=== PATIENT | female | born 1950 | race Caucasian/White ===

== ENCOUNTER → 2017-10-02 | Outpatient (CLI) | payer MEDICARE, OTHER ==
[~2017-10-02] MED LIST: AMLO5 PO; ATEN50 PO; Ativan1 MG SL; CIPR500 PO; CLON.1; Carbidopa-Levo1 EAC1 PO; ESZO2 PO; GABA300T24; Inderal40 MG; LABE100 PO; LORA1 PO; NALT50 PO; NEBI10 PO; OMEPRAZOLE MAGN20 MG PO; PRAM.125 PO; PROP10 PO; QUET25 PO; SPIR25; Zofran Odt8 MG SL
== END | disposition home or self-care (01) ==
LOC: PLD 13:17 → LAB SHORT 13:17
DX: L30.8 Other specified dermatitis (principal)
CPT/HCPCS: 88305; 88312

== ENCOUNTER → 2017-10-03 | Outpatient (CLI) | payer MEDICARE, OTHER | END | disposition home or self-care (01) | LOC: PLD 07:21 → LAB SHORT 07:21 | DX: D17.0 Benign lipomatous neoplasm of skin and subcutaneous tissue of head, face and neck (principal) | CPT/HCPCS: 88305 ==

== ENCOUNTER 2018-01-01 08:18 | Day surgery (SDC) | payer MEDICARE, OTHER ==
[~2018-01-01] VITALS: Ht 172.7 cm; Wt 83.0 kg
== END 2018-01-01 11:43 | disposition home or self-care (01) ==
LOC: ORSCSDS 08:18
PROVIDERS: Internal Medicine Gastroenterology
PROC: 0DBK8ZX Excision of Ascending Colon, Via Natural or Artificial Opening Endoscopic, Diagnostic (ICD-10-PCS; principal; 2018-01-01 09:30)
PROC: 0DBL8ZX Excision of Transverse Colon, Via Natural or Artificial Opening Endoscopic, Diagnostic (ICD-10-PCS; principal; 2018-01-01 09:30)
DX: Z12.11 Encounter for screening for malignant neoplasm of colon (principal); Z83.71 Family history of colonic polyps; D12.2 Benign neoplasm of ascending colon; D12.3 Benign neoplasm of transverse colon; K57.30 Diverticulosis of large intestine without perforation or abscess without bleeding; K64.8 Other hemorrhoids; I10 Essential (primary) hypertension; G20 Parkinson's disease; Z79.899 Other long term (current) drug therapy
CPT/HCPCS: 88305; J2405; J7120

== ENCOUNTER → 2018-06-22 | Outpatient (CLI) | payer MEDICARE, OTHER ==
[2018-06-26 14:10] LABS: DOPAMINE, URINE 29 ug/L (Undefined)
[2018-06-26 18:07] LABS: METANEPHRINE, UR 48 ug/L (Undefined)
[2018-06-28 08:18] LABS: 5-HIAA, URINE 1.9 mg/L (Undefined)
== END | disposition home or self-care (01) ==
LOC: LAB SHORT 13:16 → LAB 13:16
PROVIDERS: Internal Medicine
DX: I10 Essential (primary) hypertension (principal)
CPT/HCPCS: 81050; 82088; 82384; 82530; 82570; 83497; 83835; 84585

== ENCOUNTER → 2018-06-24 | Outpatient (CLI) | payer MEDICARE, OTHER | END | disposition home or self-care (01) | LOC: LAB SHORT 14:08 → PLD 14:08 | DX: L30.9 Dermatitis, unspecified (principal) | CPT/HCPCS: 88305 ==

== ENCOUNTER 2019-04-07 06:25 | Emergency (ER) | payer MEDICARE, OTHER ==
[~2019-04-07] VITALS: Ht 165.1 cm; Wt 81.7 kg
[2019-04-07] MEDS ORDERED: CAPTOPRIL (07:04)
[2019-04-07 07:05] LABS: BASOPHILS ABSOLUTE AUTO 0.04 K/mm3 (0.00-0.23); BASOPHILS PERCENT AUTO 0 % (0-2); EOSINOPHILS ABSOLUTE AUTO 0.02 K/mm3 (0.00-0.68); EOSINOPHILS PERCENT AUTO 0 % (0-6); Hematocrit 44.6 % (33.0-51.0); Hemoglobin 14.9 g/dL (11.5-16.0); IMMATURE GRAN ABSOLUTE AUTO 0.05 K/mm3 (0.00-0.10); IMMATURE GRAN PERCENT AUTO 0 % (0-1); LYMPHOCYTES ABSOLUTE AUTO 1.63 K/mm3 (0.84-5.20); LYMPHOCYTES PERCENT AUTO 12 % (21-46); MONOCYTES ABSOLUTE AUTO 0.92 K/mm3 (0.16-1.47); MONOCYTES PERCENT AUTO 7 % (4-13); Mean Corpuscular HGB 30.9 pg (26.0-34.0); Mean Corpuscular HGB Conc 33.4 g/dL (31.5-36.5); Mean Corpuscular Volume 93 fL (80-100); NEUTROPHILS PERCENT AUTO 81 % (41-73); Platelet Count 476 K/mm3 (150-400); Red Blood Cell Count 4.82 M/mm3 (3.80-5.20); White Blood Cell Count 13.76 K/mm3 (4.00-11.30)
[2019-04-07 07:27] LABS: Albumin, Blood 4.1 g/dL (3.4-5.0); Bun/Creatinine Ratio 19.6 (12.0-20.0); Calcium, Blood 9.7 mg/dL (8.5-10.1); Creatinine, Blood 1.12 mg/dL (0.40-1.00); Globulin, Blood 4.2 g/dL (2.2-4.0); Potassium, Blood 3.6 mmol/L (3.5-5.5); Total Protein, Blood 8.3 g/dL (6.4-8.2)
[2019-04-07 07:49] LABS: Source, Urine Clean Catch
[2019-04-07 07:58] LABS: Bilirubin, Urine Neg (Neg); Blood, Urine 4+ (Neg); Glucose Qualitative, Urine Neg (Neg); Ketones, Urine 3+ (Neg); Leukocyte Esterase, Urine 3+ (Neg); Nitrite, Urine Neg (Neg); Protein, Urine 2+ (Neg); Urobilinogen, Urine NORM (Normal)
[2019-04-07 08:15] LABS: Appearance, Urine Hazy (Clear); Color, Urine Yellow (P-Yellow)
[2019-04-07 08:17] LABS: White Blood Cells, Urine 25-50 /hpf (0-5)
[2019-04-07 08:18] LABS: Bacteria Few /hpf; Squamous Epithelial Cells Few /hpf (Few); Transitional Epithelial Cells Few /hpf (0-Rare)
[2019-04-07] MEDS ORDERED: CEPH500 PO (08:49)
[2019-04-07] MEDS ORDERED: PROM25 PO (13:02)
[2019-04-07] MEDS ORDERED: Pyridium200 MG PO (13:16)
== END 2019-04-07 13:33 | disposition home or self-care (01) ==
LOC: ER 06:25
PROVIDERS: Emergency Medicine
DX: N39.0 Urinary tract infection, site not specified (principal); Z88.8 Allergy status to other drugs, medicaments and biological substances; Z88.5 Allergy status to narcotic agent; Z79.899 Other long term (current) drug therapy; I10 Essential (primary) hypertension
CPT/HCPCS: 36415; 70450; 74176; 80053; 81001; 83690; 85025; 87086; 96361; 96374; 96375; 99284-25; J1170; J1885; J2060; J2405; J2550; J3010; J7030

== ENCOUNTER → 2019-04-16 | Outpatient (CLI) | payer MEDICARE, OTHER ==
[~2019-04-16] MED LIST changes: +CAPTOPRIL; +CEPH500 PO; +PROM25 PO; +Pyridium200 MG PO
[2019-04-16 11:56] LABS: Source, Urine Clean Catch
[2019-04-16 12:42] LABS: Bilirubin, Urine Neg (Neg); Blood, Urine 2+ (Neg); Glucose Qualitative, Urine Neg (Neg); Ketones, Urine 1+ (Neg); Leukocyte Esterase, Urine Neg (Neg); Nitrite, Urine Neg (Neg); Protein, Urine Neg (Neg); Urobilinogen, Urine NORM (Normal); pH, Urine 6.5 (5.0-8.0)
[2019-04-16 12:53] LABS: Appearance, Urine Clear (Clear); Color, Urine Yellow (P-Yellow)
[2019-04-16 12:56] LABS: Bacteria Not Seen /hpf; Squamous Epithelial Cells Few /hpf (Few); White Blood Cells, Urine Not Seen /hpf (0-5)
== END | disposition home or self-care (01) ==
LOC: LAB 11:54 → LAB SHORT 11:54
PROVIDERS: Internal Medicine
DX: N39.0 Urinary tract infection, site not specified (principal)
CPT/HCPCS: 81001

== ENCOUNTER 2019-07-09 11:26 | Day surgery (SDC) | payer MEDICARE, OTHER ==
[~2019-07-09] VITALS: Ht 175.3 cm; Wt 88.4 kg
== END 2019-07-09 13:07 | disposition home or self-care (01) ==
LOC: ORSCSDS 11:26
PROVIDERS: Anesthesiology
PROC: 3E0R33Z Introduction of Anti-inflammatory into Spinal Canal, Percutaneous Approach (ICD-10-PCS; principal; 2019-07-09 12:30)
DX: M51.16 Intervertebral disc disorders with radiculopathy, lumbar region (principal); R09.89 Other specified symptoms and signs involving the circulatory and respiratory systems; F41.9 Anxiety disorder, unspecified; G20 Parkinson's disease; Z79.899 Other long term (current) drug therapy
CPT/HCPCS: J1040

== ENCOUNTER 2019-08-04 13:51 | Day surgery (SDC) | payer MEDICARE, OTHER ==
[~2019-08-04] VITALS: Ht 172.7 cm; Wt 87.0 kg
== END 2019-08-04 14:47 | disposition home or self-care (01) ==
LOC: ORSCSDS 13:51
PROVIDERS: Anesthesiology
PROC: 3E0R33Z Introduction of Anti-inflammatory into Spinal Canal, Percutaneous Approach (ICD-10-PCS; principal; 2019-08-04 14:45)
DX: M51.16 Intervertebral disc disorders with radiculopathy, lumbar region (principal); G20 Parkinson's disease; F41.9 Anxiety disorder, unspecified; I10 Essential (primary) hypertension; Z79.899 Other long term (current) drug therapy
CPT/HCPCS: J1040

== ENCOUNTER → 2019-09-12 | Outpatient (CLI) | payer MEDICARE, OTHER | LOC: LAB EV 15:55 → LAB SHORT 15:55 | DX: N39.0 Urinary tract infection, site not specified (principal) | CPT/HCPCS: 87086 ==

== ENCOUNTER 2020-03-05 11:04 | Inpatient (IN) | payer MEDICARE, OTHER ==
[~2020-03-05] VITALS: Ht 172.7 cm; Wt 68.0 kg
[~2020-03-05 11:04] MED LIST changes: +Ativan1 MG PO; +CAPT50 PO; -CAPTOPRIL; +FURO20 PO; -Inderal40 MG; +Inderal40 MG PO; +Klor-Con 1010 MEQ PO; +ONDA4ODT MM; +PRAMIPEXOLE0.125 M1 PO; +Pyridium100 MG PO; +TRAZ100 PO; +Zithromax250 MG PO
[2020-03-05 14:20] LABS: BASOPHILS ABSOLUTE AUTO 0.03 K/mm3 (0.00-0.23); BASOPHILS PERCENT AUTO 0 % (0-2); EOSINOPHILS ABSOLUTE AUTO 0.01 K/mm3 (0.00-0.68); EOSINOPHILS PERCENT AUTO 0 % (0-6); Hematocrit 41.4 % (33.0-51.0); Hemoglobin 13.5 g/dL (11.5-16.0); IMMATURE GRAN ABSOLUTE AUTO 0.03 K/mm3 (0.00-0.10); IMMATURE GRAN PERCENT AUTO 0 % (0-1); LYMPHOCYTES ABSOLUTE AUTO 1.25 K/mm3 (0.84-5.20); LYMPHOCYTES PERCENT AUTO 10 % (21-46); MONOCYTES ABSOLUTE AUTO 1.27 K/mm3 (0.16-1.47); MONOCYTES PERCENT AUTO 10 % (4-13); Mean Corpuscular HGB 29.5 pg (26.0-34.0); Mean Corpuscular HGB Conc 32.6 g/dL (31.5-36.5); Mean Corpuscular Volume 91 fL (80-100); Mean Platelet Volume 9.6 fL (9.1-12.4); NEUTROPHILS ABSOLUTE AUTO 9.81 K/mm3 (1.96-9.15); NEUTROPHILS PERCENT AUTO 79 % (41-73); Platelet Count 448 K/mm3 (150-400); RDW Coefficient Variation 13.6 % (11.7-14.2); RDW Standard Deviation 45.9 fL (35.1-46.3); Red Blood Cell Count 4.57 M/mm3 (3.80-5.20)
[2020-03-05 14:41] LABS: Alanine Aminotransfer (ALT/SGP 22 U/L (12-78); Albumin, Blood 3.9 g/dL (3.4-5.0); Alk Phos 75 U/L (50-136); Anion Gap 10 mmol/L (6-16); Aspartate Aminotrans (AST/SGOT 33 U/L (12-37); Blood Urea Nitrogen 20 mg/dL (8-24); Bun/Creatinine Ratio 26.2 (12.0-20.0); CO2, Blood 19 mmol/L (21-32); Calcium, Blood 9.5 mg/dL (8.5-10.1); Chloride, Blood 106 mmol/L (98-108); Creatinine, Blood 0.76 mg/dL (0.40-1.00); Globulin, Blood 3.9 g/dL (2.2-4.0); Glomerular Filtration Rate >60 (60-); Glucose, Blood 114 mg/dL (70-99); Potassium, Blood 4.5 mmol/L (3.5-5.5); Sodium, Blood 135 mmol/L (136-145); Total Protein, Blood 7.8 g/dL (6.4-8.2); Troponin I <0.015 ng/mL (0.000-0.040)
[2020-03-05 15:22] LABS: Source, Urine Catheter
[2020-03-05 15:24] LABS: Bilirubin, Urine Neg (Neg); Blood, Urine 4+ (Neg); Glucose Qualitative, Urine Neg (Neg); Ketones, Urine 4+ (Neg); Leukocyte Esterase, Urine 2+ (Neg); Nitrite, Urine Neg (Neg); Protein, Urine 3+ (Neg); Specific Gravity, Urine 1.015 (1.003-1.022); Urobilinogen, Urine 1+ (Normal)
[2020-03-05 15:32] LABS: Appearance, Urine Clear (Clear); Color, Urine Yellow (P-Yellow)
[2020-03-05 15:35] LABS: Bacteria Few /hpf; Mucus Mod (0-Heavy); Squamous Epithelial Cells Few /hpf (Few)
--- NOTE | 2020-03-05 18:54 | NUR ---
ARRIVES ABOUT 1849. MOVED FROM ER COT TO MEDICAL BED. UPPER EXTREMITY TREMORS. C/O PAIN LEGS. REPORT TO NIGHT RN
--- NOTE | 2020-03-05 19:47 | NUR ---
PT. CONFUSED VERY ANXIOUS AND ATTEMPTING TO GET OOB. PT. TRANSFERRED TO SC[facility] RM 344. REPORT GIVEN TO CALVIN BOSTON
--- NOTE | 2020-03-05 21:58 | NUR ---
INCREASED ANXIETY ON TRANSFER FROM [facility] TO 344, PT WAS VERY ANXIOUS AND TREMBLING, VERY CONFUSED, TRYING TO CLIMB OUT OF BED. PT WAS PUT ON A BEDPAN, BUT WOULD NOT USE IT. PT WAS ALSO RUNNING A SLIGHT FEVER AT 100.1. THE HOSPITALIST [place]LEON REAVES WAS NOTIFIED AT 1999, AND A DEANGELO VEST WAS ORDERED ALONG WITH A OT DOSE OF 1 MG IV ATIVAN AND 30 MG IV TORADOL FOR FEVER, PT IS CURRENTLY NOT AWARE ENOUGH TO SAFELY SWALLOW PO MEDS. TEMPERATURE ON RECHECK WAS 99.1. PT CURRENTLY RESTING COMFORTABLY. WILL CONTINUE TO MONITOR.
--- NOTE | 2020-03-06 05:53 | NUR ---
SHIFT SUMMARY PT WAS TRANSFERED TO [facility] DURING THE NIGHT AT . SHE IS 69 Y/O, ADMITTED FOR HYPERTENSIVE URGENCY. PT IS VERY CONFUSED, A&O X SELF ONLY AND DIFFICULT TO REDIRECT OR REORIENT, AND TRYING TO CLIMB OUT OF BED MULTIPLE TIMES DURING THE NIGHT. PT WAS PUT IN A DEANGELO VEST RESTRAINT (SEE PREVIOUS NOTE). SHE SLEPT FOR A COUPLE OF HOURS, BUT HAS SINCE BEEN AGITATED AND YELLING OUT FOR FAMILY MEMBERS. PT ALSO REPEATS THAT SHE NEEDS TO URINATE, EVEN RIGHT AFTER USING THE BEDSIDE COMMODE. PT WAS MEDICATED FOR ANXIETY WITH PRN IV ATIVAN THREE TIMES DURING THE NIGHT. VITAL SIGNS STABLE. TELE SHOWED NSR/ST IN THE 90-100S. NO ACUTE CHANGES IN PT CONDITION NOTED. WILL CONTINUE TO MONITOR AND TREAT PER EMAR UNTIL HAND OFF TO DAY SHIFT RN.
--- NOTE | 2020-03-06 16:05 | NUR ---
PATIENT WAS VERY ANXIOUS AND RESTLESS THIS AM AND UNABLE TO STATE WHAT EXACTLY WAS WROND BOTHERING HER. SHE REPEATEDLY WANTED TO GET UP TO THE RESTROOM, BUT THEN COULD NOT VOID. BLADDER SCAN SHOWED 201 ML'S. ABDOMEN TENDER TO PALPATION. SPOKE WITH DR FOUNTAIN AND TORADOL GIVEN X1 AND JOHN PLACED WITHOUT RELIEF OF ANXIETY AND PAIN. SEROQUEL GIVEN X1 AND PATIENT HAS SLEPT WELL SINCE THIS AM. SPOKE WITH PATIENTS WHO SAID THAT PATIENT HAD NOT SLEPT IN OVER A WEEK. LR STARTED AT 100ML/HR AND AN ORDER FOR A 24 HOURS URINE WAS PLACED. 20G IV TO R HAND WNL. PATIENT REMAINS IN RESTRAINTS DUE TO FALL RISK.
--- NOTE | 2020-03-07 05:37 | NUR ---
SHIFT SUMMARY PT IS A 69 Y/O FEMALE, ADMITTED FOR HYPERTENSIVE URGENCY AND UTI. PT IS A&O X SELF AND FAMILY, THOUGH APPEARS MILDLY MORE LUCID THAN THE PREVIOUS NIGHT. PT REPORTED OCCASIONAL MUSCLE PAIN IN HER BACK AND EXTREMITIES DURING THE NIGHT, THAT WAS ONLY MILDLY TREATED WITH IV TORADOL AND REPOSITIONING. MODERATE TREMORS NOTED WHILE AWAKE. PT OTHERWISE SLEPT WELL THROUGH THE NIGHT. NO COMPLAINTS OF NAUSEA OR SOB. JOHN IN PLACE, PATENT AND DRAINING, WITH A SMALL AMOUNT OF URINE OUTPUT. PT RECEIVING CONTINUOUS LR @ 150 ML/HR. VITAL SIGNS STABLE, THOUGH AM BLOOD PRESSURE WAS SLIGHTLY ELEVATED AT 162/75. PT REMAINS ON A DEANGELO VEST RESTRAINT FOR PT SAFETY. SPOKE TO PT'S DON AT APPROXIMATELY 2145, UPDATED HIM ON PT'S CONDITION. NO OTHER ACUTE CHANGES IN PT CONDITION NOTED. WILL CONTINUE TO MONITOR AND TREAT PER EMAR UNTIL HAND OFF TO DAY SHIFT RN.
[2020-03-07 14:10] LABS: Anion Gap 3 mmol/L (6-16); Blood Urea Nitrogen 25 mg/dL (8-24); Bun/Creatinine Ratio 32.9 (12.0-20.0); CO2, Blood 25 mmol/L (21-32); Calcium, Blood 8.3 mg/dL (8.5-10.1); Chloride, Blood 108 mmol/L (98-108); Creatinine, Blood 0.76 mg/dL (0.40-1.00); Glomerular Filtration Rate >60 (60-); Glucose, Blood 126 mg/dL (70-99); Potassium, Blood 3.9 mmol/L (3.5-5.5); Sodium, Blood 136 mmol/L (136-145)
--- NOTE | 2020-03-07 17:07 | NUR ---
PT IS A 69/F AND WAS ADMITTED FOR HYPERTENSIVE URGENCY. PT IS A/OX3. PT IS MORE AWAKE TODAY; PT WAS ABLE TO TRANSFER FROM BED TO CHAIR WITH 2 PERSON ASSIST MAX. PT HAS A LOT OF PAIN ON HER BACK TODAY AND TREATED PER EMAR AND REPOSITIONING. PT HAD AN MRI TODAY. JOHN IS IN PLACE PATENT AND DRAINING, WITH A LOW URINE AMOUNT. NOTIFIED AND 1L LR BOLUS WAS GIVEN. RESTRAINT DC'D THIS MORNING AT 0745. FALL PRECAUTIONS IN PLACE PER UNIT PROTOCOL. SKIN INTACT, ROOM AIR, BP ELEVATED TODAY, BP MEDICATION RECEIVED PER EMAR. SR AND SB ON TELE. ONGOING CARE. WILL REPORT TO ONCOMING SHIFT RN.
--- NOTE | 2020-03-08 05:59 | NUR ---
SHIFT SUMMARY PT IS A 69 Y/O FEMALE, ADMITTED FOR HYPERTENSIVE URGENCY AND UTI. PT IS A&O X 2-3, MORE ORIENTED COMPARED TO PREVIOUS NIGHTS. SHE IS A 2P MAX ASSIST UP. PT COMPLAINED OF CHRONIC BACK PAIN THROUGH THE NIGHT, AND WAS MEDICATED WITH PRN OXYCODONE, TYLENOL AND A HEATING PAD. NO COMPLAINTS OF NAUSEA OR SOB. PT RECEIVING LR @ 150 ML/HR. URINE OUTPUT IS LOW, BUT INCREASED FROM PREVIOUS NIGHT. TELE SHOWING NSR/SB IN THE 50-60S. VITAL SIGNS STABLE. NO OTHER ACUTE CHANGES IN PT CONDITION NOTED. WILL CONTINUE TO MONITOR AND TREAT PER EMAR UNTIL HAND OFF TO DAY SHIFT RN.
--- NOTE | 2020-03-08 07:00 | NUR ---
ASSUMED CARE OF PT- BEDSIDE REPORT COMPLETED WITH NIGHT RN CALVIN. PER REPORT PT IS C/O NOT BEING ABLE TO MOVE HER EXTREMITIES AND HAVING TERRIBLE PAIN IN HER COCCYX. PT IS A 3P MAX ASSIST TO PIVOT TRANSFER TO THE BED FROM THE RECLINER. PT HAS A JOHN CATH IN PLACE PATENT AND DRAINING CLEAR YELLOW URINE. LR RUNNING AT 150ML PER HOUR INTO A 20G IV IN HER RIGHT FOOT/ANKLE. NO OTHER ACCESS WAS POSSIBLE PER REPORT. PT BP HAS BEEN ELEVATED. PT CURRENTLY IN THE RECLINER. PT VERY TEARFUL.
--- NOTE | 2020-03-08 16:50 | NUR ---
SHIFT SUMMARY- PT ALERT AND ORIENTED TO SELF, PLACE, EVENT AND FAMILY. MULTIPLE CALLS FROM FAMILY PASSED ON TO DR FOUNTAIN SO HE MIGHT CALL AND UPDATE THE SON OR . PT PAIN IS BEING MANAGED, HOWEVER NAUSEA SEEMS TO BE A BIGGER PROBLEM. PLAN IS TO MEDICATED THE PT FOR PAIN AGAIN ONCE SHE FEELS LESS NAUSEA. PT HAS BEEN COLD AND CLAMMY AND C/O BEING HOT ALTERNATING T/O THE SHIFT. PT HAS TRANSFERED TO THE [facility] WITH 2PA AND ATTEMPTED TO HAVE A BM TWICE SO FAR PLAN TO CALL AND REQUEST BOWEL CARE MEDS.
--- NOTE | 2020-03-08 17:28 | NUR ---
SHIFT SUMMARY- CALLED DR FOUNTAIN. RECIEVED A NEW ORDER FOR IV REGLAN Q6P AND PO DOCUSATE AND SENNA. PT HAS NOT HAD A BM SINCE ADMIT ON THE . ALSO BPS HAVE BEEN ELEVATED IN THE 160'S RECIEVED A NEW ORDER FOR IV HYDRALIZINE FOR SBP GREATER THAN 170
--- NOTE | 2020-03-08 18:30 | NUR ---
PT HAS BEEN TAKING CAPTOPRIL TID. SPOUSE OFF WORK TOMORROW 03/09/[address] AFTER [address] IN THE AM ABOUT POSSIBLE DC OF THE JOHN CATH. PT SPOUSE STATES THAT HE IS UP WITH THE PT TO PEE T/O THE NIGHT HOURLY AND SOMETIMES HE STATED HE WILL BE UP 20 TIMES IN AN HOUR TO HELP HER TO THE BATHROOM. PT HAS A SPORTS OFFICIAL CAREGIVER WHO COMES IN DAILY TO AID WITH HER CARE.
--- NOTE | 2020-03-09 04:07 | NUR ---
SHIFT SUMMARY: PT IS ALERT AND ORIENTED WITH INTERMITTENT CONFUSION AND FORGETFULNESS. PT IS VERY ANXIOUS AND CALLING OUT FOR HELP OFTEN. I CALLED Abdullahi MAHAJAN AND GOT AN ORDER FOR A ONE TIME DOSE OF 1MG IV ATIVAN, THIS HAD MINIMAL EFFECT. PT REPORTS BLE PAIN, GIVING OXYCODONE ORDERED, AND CALLED DR. READ WHO ORDERED IV FENTANYL PRN. GIVING BOTH PAIN MEDICATIONS TOGETHER WAS THE MOST EFFECTIVE, THE PT EVENTUALLY FELL ASLEEP AFTER HER PAIN LEVEL IMPROVED. JOHN PATENT AND DRAINING. PT DENIES NAUSEA, VOMITING, AND SOB. BED IN LOW POSITION, CALL LIGHT WITHIN REACH, BED ALARM SET. WILL CONTINUE TO MONITOR.
--- NOTE | 2020-03-09 18:46 | NUR ---
SHIFT SUMMARY PATIENT'S PAIN VERY DIFFICULT TO MANAGE. PATIENT MEDICATED SEVERAL TIMES FOR PAIN. PATIENT MEDICATED X2 FOR NAUSEA. PATIENT DENIES HSORTNESS OF BREATH. PATIENT REQUIRES FREQUENT REASSURANCE. PATIENT'S APPROVED FOR ONE TIME VISIT TO DETERMINE IF HE FEELS HE CAN CARE FOR PATIENT AT HOME. PATIENT NOT DISCHARGING TODAY. PATIENT'S ABLE TO ASSSIT PATIENT TO STANDING POSITION BRIEFLY. PATIENT WORKED WITH PT/OT TODAY. PATIENT REPORTS ITCHING AND RED SPLOTCHES ARE VISIBLE ON SKIN. CALL TO DR. FOUNTAIN, NO ANSWER. DR. FOUNTAIN OVERHEAD PAGED.
--- NOTE | 2020-03-10 04:37 | NUR ---
SUPERVISOR CONCRETE BLOCK PLANT SUMMARY PT AAOX2, VERY ANXIOUS AND TEARFUL AT TIMES. GAVE PT IV BENADRYL AND HYDROCORTISONE AT START OF SHIFT BECAUSE PT HAD A SLIGHT REACTION TO IV DILAUDID THAT SHE RECIEVED ON DAY SHIFT. PT COMPLAINED OF SOME FLUSHED SKIN AND ITCHING. ITCHING AND REDNESS RESOLVED WITH MEDS. PT ALSO ABLE TO SLEEP MOST OF THE NIGHT. WHEN PT IS AWAKE SHE IS VERY ANXIOUS AND TEARFUL USUALLY OVER THE SMALLEST THINGS. PT IN VISITING AT BEGINNING OF SHIFT. PT BECAME MORE ANXIOUS AFTER WENT HOME FOR THE NIGHT. VITALS HAVE BEEN STABLE. WILL CONTINUE TO MONITOR.
--- NOTE | 2020-03-10 18:41 | NUR ---
SHE STARTED OUT THE DAY PAINFUL AND TEARFUL. SHE IS MOSTLY APPROPRIATE. SHE RECEIVED IV FENTANYL X2 TODAY, TRAMADOL X1, LYRICA STARTED. CAPSAISEN STARTED. SHE DECIDED SHE DIDN'T LIKE THE CREAM. SHE WAS TEARFUL A SECOND TIME THIS AFTERNOON BUT IT DIDN'T LAST LONG. SHE STOOD WITH OT AT THE BEDSIDE AND LATER AMBULATED WITH PT IN THE HALLWAY AND FELT VERY ACCOMPLISHED AND RELIEVED.JOHN PATENT.VSS. VEGITARIAN DIET. SOME EDEMA IN THE RT FOOT AND ANKLE. IV IN RT ANKLE IS PATENT. IT IS WNL. HER PAIN WAS IN HER HANDS, FEET AND ALL OVER. HER HANDS IN PARTICULAR WERE BOTHERING HER THE MOST TODAY.
[2020-03-10 22:10] LABS: METANEPHRINE, UR 696 ug/L (Undefined)
--- NOTE | 2020-03-11 04:46 | NUR ---
GLORY HOLE TENDER SUMMARY PT AAOX2, A LITTLE ANXIOUS AT TIMES. PT DID NOT WANT CAPSACIN CREAM. SHE HAD PAIN THAT WAS TREATED PER EMAR ORDERS WITH TRAMADOL PAIN NOT FULLY CONTROLED AFTER TWO HOURS, GAVE ONE DOSE OF FENTANYL. PAIN CONTROL MEET AND PT REST THROUGH NIGHT. VVS. WILL CONTINUE TO MONITOR UNTIL SHIFT CHANGE.
[2020-03-11] MEDS ORDERED: SINEMET 25-1001 EAC1 PO (10:13)
[2020-03-11] MEDS ORDERED: DOCU100 PO (10:14)
[2020-03-11] MEDS ORDERED: MIRALAX17 GM PO (10:14)
[2020-03-11] MEDS ORDERED: PREG75 PO (10:15)
[2020-03-11] MEDS ORDERED: Seroquel Xr50 MG PO (10:15)
[2020-03-11] MEDS ORDERED: TRAM50 PO (10:16)
--- NOTE | 2020-03-11 15:06 | NUR ---
DISCHARGED TO HOME WITH HER AT 1305. SHE HAS BELONGINGS AND INSTRUCTIONS. RX'S FAXED TO [employer]. HER 2 LARGE FLOWER ARRANGEMENTS WENT HOME WITH HER ALONG WITH HER HOME MED BOTTLE. SHE HAD A GOOD MORNING. SHE IS HAPPY WITH HER MOBILITY AND HER COMFORT. SHE VOIDED X2 POST JOHN. A BLADDER SCAN SHOWED A PVR OF 178.
== END 2020-03-11 13:08 | disposition home health service (06) | DRG 552 ==
LOC: ER 11:04 → MEDS 11:05 → ER 11:05 → MEDS 19:14
PROVIDERS: Emergency Medicine; ADMIT Internal Medicine
DX: M54.5 Low back pain (principal); R65.10 Systemic inflammatory response syndrome (SIRS) of non-infectious origin without acute organ dysfunction; N39.0 Urinary tract infection, site not specified; I16.0 Hypertensive urgency; F41.9 Anxiety disorder, unspecified; Z90.12 Acquired absence of left breast and nipple; G20 Parkinson's disease; G25.2 Other specified forms of tremor; Z78.1 Physical restraint status; M79.661 Pain in right lower leg; M79.662 Pain in left lower leg
CPT/HCPCS: 36415; 72158; 80048; 80053; 81001; 81050; 82550; 83605; 83690; 83835; 84443; 84484; 85025; 85651; 87040; 87086; 93005; 93010; 96361; 96365-59; 96372; 96375; 96375-59; 96376; 97110; 97112; 97116; 97162; 97166; 97530; 99284-25; A9270; A9270-GY; A9577; G0378; J0360; J0696; J1170; J1200; J1630; J1650; J1720; J1885; J2060; J2405; J2765; J3010; J7030; J7050; J7120; P9612

== ENCOUNTER 2020-03-19 16:29 | Emergency (ER) | payer MEDICARE, OTHER ==
[~2020-03-19] VITALS: Ht 172.7 cm; Wt 81.7 kg
[~2020-03-19 16:29] MED LIST changes: +DOCU100 PO; +MIRALAX17 GM PO; +PREG75 PO; +SINEMET 25-1001 EAC1 PO; +Seroquel Xr50 MG PO; +TRAM50 PO
[2020-03-19 17:17] LABS: BASOPHILS ABSOLUTE AUTO 0.03 K/mm3 (0.00-0.23); BASOPHILS PERCENT AUTO 1 % (0-2); EOSINOPHILS ABSOLUTE AUTO 0.04 K/mm3 (0.00-0.68); EOSINOPHILS PERCENT AUTO 1 % (0-6); Hematocrit 45.1 % (33.0-51.0); Hemoglobin 13.6 g/dL (11.5-16.0); IMMATURE GRAN ABSOLUTE AUTO 0.01 K/mm3 (0.00-0.10); IMMATURE GRAN PERCENT AUTO 0 % (0-1); LYMPHOCYTES ABSOLUTE AUTO 1.38 K/mm3 (0.84-5.20); LYMPHOCYTES PERCENT AUTO 21 % (21-46); MONOCYTES PERCENT AUTO 9 % (4-13); Mean Corpuscular HGB 28.8 pg (26.0-34.0); Mean Corpuscular HGB Conc 30.2 g/dL (31.5-36.5); Mean Corpuscular Volume 96 fL (80-100); Mean Platelet Volume 10.6 fL (9.1-12.4); NEUTROPHILS ABSOLUTE AUTO 4.44 K/mm3 (1.96-9.15); NEUTROPHILS PERCENT AUTO 68 % (41-73); Platelet Count 382 K/mm3 (150-400); RDW Standard Deviation 46.5 fL (35.1-46.3); Red Blood Cell Count 4.72 M/mm3 (3.80-5.20)
[2020-03-19 17:41] LABS: Alanine Aminotransfer (ALT/SGP 19 U/L (12-78); Albumin, Blood 3.6 g/dL (3.4-5.0); Albumin/Globulin Ratio 0.9 (0.8-1.8); Alk Phos 76 U/L (50-136); Anion Gap 5 mmol/L (6-16); Aspartate Aminotrans (AST/SGOT 26 U/L (12-37); Bilirubin, Total 0.6 mg/dL (0.1-1.0); Blood Urea Nitrogen 16 mg/dL (8-24); Bun/Creatinine Ratio 19.8 (12.0-20.0); CO2, Blood 26 mmol/L (21-32); Calcium, Blood 9.2 mg/dL (8.5-10.1); Chloride, Blood 105 mmol/L (98-108); Creatinine, Blood 0.81 mg/dL (0.40-1.00); Globulin, Blood 3.8 g/dL (2.2-4.0); Glomerular Filtration Rate >60 (60-); Glucose, Blood 123 mg/dL (70-99); Potassium, Blood 4.3 mmol/L (3.5-5.5); Sodium, Blood 136 mmol/L (136-145); Total Protein, Blood 7.4 g/dL (6.4-8.2)
== END 2020-03-19 18:53 | disposition left against medical advice (07) ==
LOC: ER 16:29
PROVIDERS: Physician Assistant
DX: Z53.21 Procedure and treatment not carried out due to patient leaving prior to being seen by health care provider (principal)
CPT/HCPCS: 80053; 83690; 85025

== ENCOUNTER 2020-03-19 19:27 | Emergency (ER) | payer MEDICARE, OTHER ==
[~2020-03-19] VITALS: Ht 172.7 cm; Wt 85.3 kg
[2020-03-19 20:01] LABS: BASOPHILS ABSOLUTE AUTO 0.02 K/mm3 (0.00-0.23); BASOPHILS PERCENT AUTO 0 % (0-2); EOSINOPHILS ABSOLUTE AUTO 0.04 K/mm3 (0.00-0.68); EOSINOPHILS PERCENT AUTO 1 % (0-6); Hematocrit 41.8 % (33.0-51.0); Hemoglobin 13.4 g/dL (11.5-16.0); IMMATURE GRAN ABSOLUTE AUTO 0.01 K/mm3 (0.00-0.10); IMMATURE GRAN PERCENT AUTO 0 % (0-1); LYMPHOCYTES ABSOLUTE AUTO 1.46 K/mm3 (0.84-5.20); LYMPHOCYTES PERCENT AUTO 20 % (21-46); MONOCYTES ABSOLUTE AUTO 0.59 K/mm3 (0.16-1.47); MONOCYTES PERCENT AUTO 8 % (4-13); Mean Corpuscular HGB 28.7 pg (26.0-34.0); Mean Corpuscular HGB Conc 32.1 g/dL (31.5-36.5); Mean Corpuscular Volume 90 fL (80-100); Mean Platelet Volume 10.6 fL (9.1-12.4); NEUTROPHILS ABSOLUTE AUTO 5.02 K/mm3 (1.96-9.15); NEUTROPHILS PERCENT AUTO 70 % (41-73); Platelet Count 468 K/mm3 (150-400); RDW Coefficient Variation 13.2 % (11.7-14.2); RDW Standard Deviation 43.2 fL (35.1-46.3); Red Blood Cell Count 4.67 M/mm3 (3.80-5.20); White Blood Cell Count 7.14 K/mm3 (4.00-11.30)
[2020-03-19 20:24] LABS: Alanine Aminotransfer (ALT/SGP 21 U/L (12-78); Albumin, Blood 3.7 g/dL (3.4-5.0); Alk Phos 76 U/L (50-136); Anion Gap 5 mmol/L (6-16); Aspartate Aminotrans (AST/SGOT 32 U/L (12-37); Bilirubin, Total 0.8 mg/dL (0.1-1.0); Blood Urea Nitrogen 17 mg/dL (8-24); Bun/Creatinine Ratio 19.9 (12.0-20.0); CO2, Blood 28 mmol/L (21-32); Calcium, Blood 9.5 mg/dL (8.5-10.1); Chloride, Blood 105 mmol/L (98-108); Creatinine, Blood 0.86 mg/dL (0.40-1.00); Globulin, Blood 3.8 g/dL (2.2-4.0); Glomerular Filtration Rate >60 (60-); Glucose, Blood 131 mg/dL (70-99); Potassium, Blood 4.7 mmol/L (3.5-5.5); Sodium, Blood 138 mmol/L (136-145); Total Protein, Blood 7.5 g/dL (6.4-8.2); Troponin I <0.015 ng/mL (0.000-0.040)
== END 2020-03-19 20:47 | disposition left against medical advice (07) ==
LOC: ER 19:27
PROVIDERS: Emergency Medicine
DX: Z53.21 Procedure and treatment not carried out due to patient leaving prior to being seen by health care provider (principal)
CPT/HCPCS: 71046; 80053; 84484; 85025; 93005; 93010; 99281

== ENCOUNTER → 2020-03-20 | Outpatient (CLI) | payer MEDICARE, OTHER | END | disposition home or self-care (01) | LOC: LAB 13:30 → LAB SHORT 13:30 | DX: R11.0 Nausea (principal); R41.0 Disorientation, unspecified | CPT/HCPCS: 87086 ==

== ENCOUNTER → 2020-05-31 | Outpatient (CLI) | payer MEDICARE, OTHER ==
[2020-06-05 13:10] LABS: DOPAMINE, URINE 3699 ug/L (Undefined)
[2020-06-06 14:10] LABS: CREATININE, URINE 65.6 mg/dL (Not Estab.)
[2020-06-10 23:07] LABS: CREATININE, URINE 63 mg/dL (.); METANEPHRINE/CREATININE RATIO 148 ug/g (.); NORMETANEPHRINE/CREAT. RATIO 524 ug/g (.)
== END | disposition home or self-care (01) ==
LOC: LAB SHORT 09:38 → LAB 09:38 → OLS 09:38
PROVIDERS: Internal Medicine
DX: R79.89 Other specified abnormal findings of blood chemistry (principal)
CPT/HCPCS: 81050; 82384; 82570; 83835; 84585

== ENCOUNTER → 2020-06-27 | Outpatient (CLI) | payer MEDICARE, OTHER | END | disposition home or self-care (01) | LOC: LAB SHORT 14:35 → LAB 14:35 | DX: R30.0 Dysuria (principal) | CPT/HCPCS: 87086 ==

== ENCOUNTER → 2020-07-28 | Outpatient (CLI) | payer MEDICARE, OTHER | END | disposition home or self-care (01) | LOC: LAB 14:28 → LAB SHORT 14:28 | DX: R30.0 Dysuria (principal) | CPT/HCPCS: 87086 ==

== ENCOUNTER 2020-11-08 08:52 | Inpatient (IN) | payer MEDICARE, OTHER ==
[~2020-11-08] VITALS: Ht 172.7 cm; Wt 113.4 kg
[2020-11-08 09:39] LABS: BASOPHILS ABSOLUTE AUTO 0.07 K/mm3 (0.00-0.23); BASOPHILS PERCENT AUTO 0 % (0-2); EOSINOPHILS ABSOLUTE AUTO 0.17 K/mm3 (0.00-0.68); EOSINOPHILS PERCENT AUTO 1 % (0-6); Hemoglobin 14.7 g/dL (11.5-16.0); IMMATURE GRAN ABSOLUTE AUTO 0.36 K/mm3 (0.00-0.10); IMMATURE GRAN PERCENT AUTO 2 % (0-1); LYMPHOCYTES ABSOLUTE AUTO 4.82 K/mm3 (0.84-5.20); LYMPHOCYTES PERCENT AUTO 22 % (21-46); MONOCYTES ABSOLUTE AUTO 0.85 K/mm3 (0.16-1.47); MONOCYTES PERCENT AUTO 4 % (4-13); Mean Corpuscular HGB 27.9 pg (26.0-34.0); Mean Corpuscular HGB Conc 30.6 g/dL (31.5-36.5); Mean Corpuscular Volume 91 fL (80-100); NEUTROPHILS ABSOLUTE AUTO 15.93 K/mm3 (1.96-9.15); NEUTROPHILS PERCENT AUTO 72 % (41-73); Platelet Count 453 K/mm3 (150-400); RDW Coefficient Variation 14.1 % (11.7-14.2); RDW Standard Deviation 47.6 fL (35.1-46.3); Red Blood Cell Count 5.26 M/mm3 (3.80-5.20)
[2020-11-08 09:53] LABS: Alanine Aminotransfer (ALT/SGP 16 U/L (12-78); Albumin, Blood 3.2 g/dL (3.4-5.0); Albumin/Globulin Ratio 0.8 (0.8-1.8); Alk Phos 135 U/L (50-136); Anion Gap 8 mmol/L (6-16); Aspartate Aminotrans (AST/SGOT 29 U/L (12-37); Bilirubin, Total 0.3 mg/dL (0.1-1.0); Blood Urea Nitrogen 40 mg/dL (8-24); Bun/Creatinine Ratio 57.1 (12.0-20.0); CO2, Blood 25 mmol/L (21-32); Calcium, Blood 8.9 mg/dL (8.5-10.1); Chloride, Blood 106 mmol/L (98-108); Glomerular Filtration Rate >60 (60-); Glucose, Blood 183 mg/dL (70-99); Potassium, Blood 4.2 mmol/L (3.5-5.5); Sodium, Blood 139 mmol/L (136-145); Total Protein, Blood 7.2 g/dL (6.4-8.2)
[2020-11-08 10:11] LABS: Base Excess Venous -2.3 mmol/L; Bicarbonate Venous 21.6 mmol/L (24.0-30.0); PO2 Venous 69.9 mmHg (38-42); pH Blood Venous 7.27 (7.34-7.37)
[2020-11-08 11:45] LABS: Source, Urine Catheter
[2020-11-08 11:56] LABS: Appearance, Urine Clear (Clear); Bilirubin, Urine Neg (Neg); Blood, Urine 3+ (Neg); Color, Urine Yellow (P-Yellow); Glucose Qualitative, Urine Neg (Neg); Ketones, Urine 1+ (Neg); Leukocyte Esterase, Urine 2+ (Neg); Nitrite, Urine Neg (Neg); Protein, Urine 1+ (Neg); Specific Gravity, Urine 1.015 (1.003-1.022); Urobilinogen, Urine NORM (Normal)
[2020-11-08 12:15] LABS: Bacteria Many /hpf; Squamous Epithelial Cells Mod /hpf (Few)
[2020-11-08] MEDS ORDERED: CAPT50 PO (12:19)
[2020-11-08] MEDS ORDERED: CYCL10 PO (12:19)
[2020-11-08] MEDS ORDERED: OXYC10TA19 PO (12:19)
[2020-11-08] MEDS ORDERED: CARBLEV25 SL ×2 (12:20→12:21)
[2020-11-08] MEDS ORDERED: FURO40 PO (12:21)
[2020-11-08] MEDS ORDERED: DOCU100 PO (12:21)
[2020-11-08] MEDS ORDERED: PREG50 PO (12:22)
[2020-11-08] MEDS ORDERED: Ativan1 MG PO (12:22)
[2020-11-08] MEDS ORDERED: Inderal40 MG PO (12:23)
[2020-11-08] MEDS ORDERED: K-Dur10 MEQ PO (12:23)
[2020-11-08] MEDS ORDERED: Seroquel Xr50 MG PO (12:24)
[2020-11-08] MEDS ORDERED: ONDA4ODT MM (12:24)
[2020-11-08 16:34] LABS: Base Excess Venous -2.3 mmol/L; Bicarbonate Venous 22.4 mmol/L (24.0-30.0); PCO2 Venous 41.9 mmHg (38-42); PO2 Venous 83.6 mmHg (38-42); pH Blood Venous 7.35 (7.34-7.37)
[2020-11-08 18:55] LABS: Influenza A, PCR NEGATIVE (NEGATIVE); Influenza B, PCR NEGATIVE (NEGATIVE); Resp Syncytial Virus, PCR NEGATIVE (NEGATIVE); SARS-Cov-2 (COVID-19) PCR, MMC NEGATIVE (NEGATIVE)
--- NOTE | 2020-11-08 19:27 | NUR ---
PT TRANSFERRED TO FLOOR BY ER AT 1750. SETTLED PT TO BED. HUSB AT BEDSIDE. ASSISTED WITH ADMIT HIST. PT ANS SOME QUESTIONS, OFTEN MOANING YES NO ANS. H/R REG, BUT TACHY. PER TELE. S TACH AT 107. LUNGS CLEAR, RESP EASY, UNLABORED. WAS ON 3L AT TRANSFER, BUT TURNED DOWN TO 2L WAS AT 97%. DID MAINTAIN AT 95%. HAVE REQUESTED SANYA BOSTON TO MONITOR. BT X4 LAST BM NOT KNOWN. VOIDS 2 ASST TO BSC. IN ATTENDS AT THIS TIME. PT REFUSING SCD'S AT THIS TIME, HOWEVER IS ON LOVENOX. BED IN LOW POSITION, CALL LITE IN REACH, BED ALARM ON FOR SAFETY. HUSB AT BEDSIDE. REPORT GIVEN TO SANYA BOSTON.
[2020-11-08 22:51] LABS: U Benzodiazapine Screen DETECTED; U Cannabinoids Screen DETECTED; U Opiates Screen DETECTED; U Oxycodone Screen DETECTED
[2020-11-08 22:52] LABS: U Amphetamine Screen Not Detected; U Barbituate Screen Not Detected; U Buprenorphine Screen Not Detected; U Cocaine Screen Not Detected; U Methadone Screen Not Detected; U Methamphetamine Screen Not Detected; U Phencyclidine Screen Not Detected; U Propoxyphene Screen Not Detected
--- NOTE | 2020-11-09 05:07 | NUR ---
CHEESE GRADER SUMMARY NEW ADMIT JUST BEFORE START OF SHIFT. PT ADMITTED FOR POSS UTI AND COLITIS. PT REPORTS PT WAS MINIMALLY RESPONSIVE AND EXTREMELY WEAK AT HOME PRIOR TO COMING TO ED. PT MORE AWAKE NOW AND CAN ANSWER ALL QUESTIONS BUT IS STILL A BIT DROWSY AND SLOW TO RESPOND. SHE DOES KNOW WHERE SHE IS, HER , THE YEAR, AND WHY SHE IS HERE. RECIEVED LR BOLUS AND NOW ON MAINTENANCE LR AT 125/HR. PT COMPLAINS OF SOME LOWER ABD PAIN, GIVEN TYLENOL AND PT HAS BEEN ABLE TO SLEEP SOME TONIGHT. ABLE TO STAND PT UP WITH 2 ASSIST AND USE BSC. SURGICAL DRESSINGS ON PT'S BACK, SHE HAD A VERY RECENT BACK SURGERY. DRESSINGS C/D/I. ON 2L O2 VIA NC, RA AT BASELINE. VSS, WILL CONTINUE TO MONITOR.
[2020-11-09 05:31] LABS: BASOPHILS ABSOLUTE AUTO 0.03 K/mm3 (0.00-0.23); BASOPHILS PERCENT AUTO 0 % (0-2); EOSINOPHILS ABSOLUTE AUTO 0.02 K/mm3 (0.00-0.68); EOSINOPHILS PERCENT AUTO 0 % (0-6); Hematocrit 39.9 % (33.0-51.0); Hemoglobin 12.5 g/dL (11.5-16.0); IMMATURE GRAN ABSOLUTE AUTO 0.16 K/mm3 (0.00-0.10); IMMATURE GRAN PERCENT AUTO 1 % (0-1); LYMPHOCYTES ABSOLUTE AUTO 1.25 K/mm3 (0.84-5.20); LYMPHOCYTES PERCENT AUTO 5 % (21-46); MONOCYTES ABSOLUTE AUTO 1.18 K/mm3 (0.16-1.47); MONOCYTES PERCENT AUTO 5 % (4-13); Mean Corpuscular HGB Conc 31.3 g/dL (31.5-36.5); Mean Corpuscular Volume 90 fL (80-100); Mean Platelet Volume 9.6 fL (9.1-12.4); NEUTROPHILS ABSOLUTE AUTO 20.34 K/mm3 (1.96-9.15); NEUTROPHILS PERCENT AUTO 89 % (41-73); Platelet Count 369 K/mm3 (150-400); RDW Coefficient Variation 14.4 % (11.7-14.2); RDW Standard Deviation 47.5 fL (35.1-46.3); Red Blood Cell Count 4.46 M/mm3 (3.80-5.20); White Blood Cell Count 22.98 K/mm3 (4.00-11.30)
[2020-11-09 05:48] LABS: Magnesium, Blood 2.5 mg/dL (1.6-2.4)
[2020-11-09 05:49] LABS: Alanine Aminotransfer (ALT/SGP 13 U/L (12-78); Albumin, Blood 2.6 g/dL (3.4-5.0); Albumin/Globulin Ratio 0.8 (0.8-1.8); Alk Phos 82 U/L (50-136); Anion Gap 5 mmol/L (6-16); Aspartate Aminotrans (AST/SGOT 28 U/L (12-37); Bilirubin, Total 0.8 mg/dL (0.1-1.0); Blood Urea Nitrogen 35 mg/dL (8-24); Bun/Creatinine Ratio 47.7 (12.0-20.0); CO2, Blood 27 mmol/L (21-32); Calcium, Blood 8.2 mg/dL (8.5-10.1); Chloride, Blood 105 mmol/L (98-108); Creatinine, Blood 0.73 mg/dL (0.40-1.00); Globulin, Blood 3.1 g/dL (2.2-4.0); Glomerular Filtration Rate >60 (60-); Glucose, Blood 153 mg/dL (70-99); Potassium, Blood 4.2 mmol/L (3.5-5.5); Sodium, Blood 137 mmol/L (136-145); Total Protein, Blood 5.7 g/dL (6.4-8.2)
[2020-11-09 11:04] LABS: Source, Urine Voided
[2020-11-09 13:18] LABS: Appearance, Urine Clear (Clear); Blood, Urine 2+ (Neg); Color, Urine Yellow (P-Yellow); Glucose Qualitative, Urine Neg (Neg); Ketones, Urine 1+ (Neg); Leukocyte Esterase, Urine 1+ (Neg); Nitrite, Urine Neg (Neg); Protein, Urine 2+ (Neg); Specific Gravity, Urine 1.025 (1.003-1.022); Urobilinogen, Urine NORM (Normal)
[2020-11-09 13:25] LABS: Bilirubin, Urine 1+ (Neg)
[2020-11-09 13:26] LABS: Bacteria Mod /hpf; Squamous Epithelial Cells Mod /hpf (Few)
--- NOTE | 2020-11-09 18:29 | NUR ---
SHIFT SUMMARY PT IS A&O AND ABLE TO MAKE NEEDS KNOWN. PT HAS EXPERIENCED PAIN IN ABDOMEN AND LOWER BACK THROUGHOUT SHIFT. PT HAS BEEN REPOSITIONED, AND MEDICATED PER E-MAR TO HELP MANAGE THE PAIN. SURGICAL SITE DRESSING WAS CHANGED BY JUNIOR THIS SHIFT. PT IS A 2 PERSON TRANSFER. PT HAS BEEN FEELING URINARY URGENCY FREQUENTLY DURING SHIFT. PT HAS BEEN CONTINENT/INCONTINENT DURING SHIFT. INCENTIVE SPIROMETER GIVEN TO PT AND TEACHING DONE. PT CURENTLY IN BED WITH CALL LIGHT NEXT TO HER.
--- NOTE | 2020-11-10 04:12 | NUR ---
SHIFT SUMMARY NO ACUTE CHANGES THIS SHIFT. PT HAS BEEN 2 PERSON TRANSFER TO [facility] WITH GAIT BELT FOR MOST OF SHIFT. @ 0215 PT GOT OOB BY HERSELF AND MADE IT HALF WAY TO BATHROOM BEFORE STAFF WAS ABLE TO ENTER ROOM. PT PULLED IV OUT. PT WAS ABLE TO WALK WELL WITH SOMEWHAT UNSTEADY GAIT TO AND FROM BATHROOM. PT WAS ABLE TO GET HERSELF BACK IN BED WELL WHEN STAFF INSTRUCTED HER TO DO SO. NEW IV PLACED, LR RESTARTED @ 150/HR. PT IS LAYING IN BED WITH EYES CLOSED, EVEN AND UNLABORED RESPIRATIONS. BED IN LOWERED POSITION WITH ALARM IN PLACE. CALL LIGHT AND PERSONAL ITEMS WITH IN REACH. NO APPARENT NEEDS OR DISTRESS AT THIS TIME, WILL CONTINUE TO MONITOR UNTIL REPORT GIVEN TO DAY RN.
[2020-11-10 05:21] LABS: BASOPHILS ABSOLUTE AUTO 0.04 K/mm3 (0.00-0.23); BASOPHILS PERCENT AUTO 0 % (0-2); EOSINOPHILS ABSOLUTE AUTO 0.14 K/mm3 (0.00-0.68); EOSINOPHILS PERCENT AUTO 1 % (0-6); Hematocrit 34.6 % (33.0-51.0); Hemoglobin 10.9 g/dL (11.5-16.0); IMMATURE GRAN ABSOLUTE AUTO 0.41 K/mm3 (0.00-0.10); IMMATURE GRAN PERCENT AUTO 2 % (0-1); LYMPHOCYTES ABSOLUTE AUTO 1.27 K/mm3 (0.84-5.20); LYMPHOCYTES PERCENT AUTO 5 % (21-46); MONOCYTES ABSOLUTE AUTO 1.42 K/mm3 (0.16-1.47); MONOCYTES PERCENT AUTO 6 % (4-13); Mean Corpuscular HGB 28.7 pg (26.0-34.0); Mean Corpuscular HGB Conc 31.5 g/dL (31.5-36.5); Mean Corpuscular Volume 91 fL (80-100); Mean Platelet Volume 10.1 fL (9.1-12.4); NEUTROPHILS ABSOLUTE AUTO 20.56 K/mm3 (1.96-9.15); NEUTROPHILS PERCENT AUTO 86 % (41-73); Platelet Count 299 K/mm3 (150-400); RDW Coefficient Variation 14.6 % (11.7-14.2); White Blood Cell Count 23.84 K/mm3 (4.00-11.30)
[2020-11-10 05:48] LABS: Anion Gap 6 mmol/L (6-16); Blood Urea Nitrogen 34 mg/dL (8-24); Bun/Creatinine Ratio 43.9 (12.0-20.0); CO2, Blood 27 mmol/L (21-32); Calcium, Blood 7.8 mg/dL (8.5-10.1); Chloride, Blood 104 mmol/L (98-108); Creatinine, Blood 0.78 mg/dL (0.40-1.00); Glomerular Filtration Rate >60 (60-); Glucose, Blood 117 mg/dL (70-99); Sodium, Blood 137 mmol/L (136-145)
--- NOTE | 2020-11-10 17:38 | NUR ---
SHIFT SUMMARY PT IS A&O AND ABLE TO MAKE NEEDS KNOWN. PT HAS BEEN IN PAIN T/O SHIFT. THIS MORING PT STATED HER ABDOMEN WAS PAINFULL BUT FELLS BETTER THAN YESTERDAY. PT POWERGLIDE PLACED BY ICU NURSE THIS AFTERNOON, FLAGYL DOSE TIME WAS ADJUSTED MORNING DOSE WAS NOT GIVEN UNTIL IV ACCESS WAS OBTAINED. IN AM PT WAS CRYING STATED SHE WAS FRUSTRATED BECAUSE 2 WEEKS AGO SHE WAS ABLE TO WALK. SAT WITH PT AND TALKED ABOUT CELEBRATING SMALL VICTORYS SUCH ASS YESTERDAY SHE WAS 2X TRANSFER AND TODAY SHE WAS 1 PERSON. ALSO FOUND THE [employer] CHANNEL FOR PT TO WATCH. PT STATED IT HELPED. DURING AFTERNOON PT COMPLAINED OF STOMACH PAIN. PT SAT ON COMODE AND HAD SMALL BM, SHE STILL FELT PAIN AND REQUESTED ENEMA. ENCOURAGED PT TO MOVE AND WALK IN EFFORT TO STIMULATE BM. PT WORKED WITH PHYSICAL THERAPY AND WALKED IN JONES. AFTERWARDS PT REQUESTED ENEMA AGAIN, NOTIFED AND NEW ORDERS FOR ENEMA GIVEN. PT IN ROOM CALL LIGHT W/IN REACH.
--- NOTE | 2020-11-11 04:27 | NUR ---
SHIFT SUMMARY NO ACUTE CHANGES THIS SHIFT. PT C/O PAIN, MEDICATED PER NOV. PT STATED PAIN WAS STILL TOO MUCH TO HANDLE. ORDER OBTAIND FROM DR. READ FOR 25-50MCG FENTANYL Q4 PRN. DUE TO BOWEL CARE, PT HAS BEEN ABLE TO HAVE 2 LARGE BMs, AFTER WHICH THE PT HAS STATED FEELING MUCH BETTER. 0200 PT AMBULATED IN JONES WITH FILLING CARRIER USING FWW, GAIT BELT AND BACK BRACE. PT TOLERATED WELL. PT IS LAYING IN BED WATCHING TV, EVEN AND UNLABORED RESPIRATIONS. BED IN LOWERED POSITION WITH ALARM IN PLACE. CALL LIGHT AND PERSONAL ITEMS WITH IN REACH. NO APPARENT NEEDS OR DISTRESS AT THIS TIME, WILL CONTINUE TO MONITOR UNTIL REPORT GIVEN TO DAY RN.
[2020-11-11 05:43] LABS: BASOPHILS ABSOLUTE AUTO 0.03 K/mm3 (0.00-0.23); BASOPHILS PERCENT AUTO 0 % (0-2); EOSINOPHILS ABSOLUTE AUTO 0.15 K/mm3 (0.00-0.68); EOSINOPHILS PERCENT AUTO 1 % (0-6); Hematocrit 30.9 % (33.0-51.0); Hemoglobin 9.9 g/dL (11.5-16.0); IMMATURE GRAN ABSOLUTE AUTO 0.27 K/mm3 (0.00-0.10); IMMATURE GRAN PERCENT AUTO 2 % (0-1); LYMPHOCYTES ABSOLUTE AUTO 1.46 K/mm3 (0.84-5.20); LYMPHOCYTES PERCENT AUTO 10 % (21-46); MONOCYTES ABSOLUTE AUTO 1.23 K/mm3 (0.16-1.47); MONOCYTES PERCENT AUTO 8 % (4-13); Mean Corpuscular HGB 28.6 pg (26.0-34.0); Mean Corpuscular Volume 89 fL (80-100); Mean Platelet Volume 9.9 fL (9.1-12.4); NEUTROPHILS ABSOLUTE AUTO 12.09 K/mm3 (1.96-9.15); NEUTROPHILS PERCENT AUTO 79 % (41-73); Platelet Count 310 K/mm3 (150-400); RDW Coefficient Variation 14.3 % (11.7-14.2); RDW Standard Deviation 46.9 fL (35.1-46.3); Red Blood Cell Count 3.46 M/mm3 (3.80-5.20); White Blood Cell Count 15.23 K/mm3 (4.00-11.30)
[2020-11-11 05:59] LABS: Anion Gap 5 mmol/L (6-16); Blood Urea Nitrogen 23 mg/dL (8-24); Bun/Creatinine Ratio 35.1 (12.0-20.0); CO2, Blood 28 mmol/L (21-32); Calcium, Blood 7.7 mg/dL (8.5-10.1); Chloride, Blood 106 mmol/L (98-108); Creatinine, Blood 0.66 mg/dL (0.40-1.00); Glomerular Filtration Rate >60 (60-); Glucose, Blood 109 mg/dL (70-99); Potassium, Blood 3.4 mmol/L (3.5-5.5); Sodium, Blood 139 mmol/L (136-145)
--- NOTE | 2020-11-11 17:34 | NUR ---
PT AOX4 AND COOPERATIVE OF CARE. PT DOING WELL AND HAS BEEN A ONE PERSON TO RESTROOM WITH WALKER AND GAITBELT. PT HAS BEEN TREATED FOR BACK PAIN AND NAUSEA PER EMAR TODAY. PT HAS BEEN ABLE TO HAVE TWO MEDIUM BOWEL MOVEMENTS. CALL LIGHT IS WITHIN REACH WILL CONTINUE TO MONITOR.
[2020-11-12 06:10] LABS: BASOPHILS ABSOLUTE AUTO 0.03 K/mm3 (0.00-0.23); BASOPHILS PERCENT AUTO 0 % (0-2); EOSINOPHILS ABSOLUTE AUTO 0.18 K/mm3 (0.00-0.68); EOSINOPHILS PERCENT AUTO 1 % (0-6); Hematocrit 33.2 % (33.0-51.0); Hemoglobin 10.7 g/dL (11.5-16.0); IMMATURE GRAN PERCENT AUTO 1 % (0-1); LYMPHOCYTES ABSOLUTE AUTO 1.71 K/mm3 (0.84-5.20); LYMPHOCYTES PERCENT AUTO 12 % (21-46); MONOCYTES ABSOLUTE AUTO 1.25 K/mm3 (0.16-1.47); MONOCYTES PERCENT AUTO 9 % (4-13); Mean Corpuscular HGB 28.5 pg (26.0-34.0); Mean Corpuscular HGB Conc 32.2 g/dL (31.5-36.5); Mean Corpuscular Volume 89 fL (80-100); Mean Platelet Volume 9.8 fL (9.1-12.4); NEUTROPHILS ABSOLUTE AUTO 11.44 K/mm3 (1.96-9.15); NEUTROPHILS PERCENT AUTO 78 % (41-73); Platelet Count 383 K/mm3 (150-400); RDW Coefficient Variation 14.4 % (11.7-14.2); RDW Standard Deviation 46.3 fL (35.1-46.3); Red Blood Cell Count 3.75 M/mm3 (3.80-5.20); White Blood Cell Count 14.71 K/mm3 (4.00-11.30)
[2020-11-12 06:40] LABS: Albumin, Blood 2.3 g/dL (3.4-5.0); Anion Gap 5 mmol/L (6-16); Blood Urea Nitrogen 13 mg/dL (8-24); Bun/Creatinine Ratio 21.4 (12.0-20.0); CO2, Blood 27 mmol/L (21-32); Calcium, Blood 7.6 mg/dL (8.5-10.1); Chloride, Blood 105 mmol/L (98-108); Creatinine, Blood 0.61 mg/dL (0.40-1.00); Glomerular Filtration Rate >60 (60-); Glucose, Blood 106 mg/dL (70-99); Phosphorus, Blood 1.8 mg/dL (2.5-4.9); Potassium, Blood 3.8 mmol/L (3.5-5.5); Sodium, Blood 137 mmol/L (136-145)
--- NOTE | 2020-11-12 07:37 | NUR ---
SHIFT SUMMARY PATIENT ALERT AND ORIENTED. REQUIRES EXTERNAL MOTIVATION FROM CARE STAFF IN ORDER FOR HER TO PARTICIPATE IN HER CARE. PATIENT GREATLY ENCOURAGED TO DO MUCH FOR HERSELF SHE CAN. MEDICATIONS GIVEN PER EMAR FOR PAIN. POWERGLIDE PATENT AND INFUSING. BED IN LOWEST POSITION WITH WHEELS LOCKED AND ALARM ON. CALL LIGHT WITHIN REACH. REPORT GIVEN TO ONCOMING RN.
--- NOTE | 2020-11-12 17:19 | NUR ---
PT AOX4 AND COOPERATIVE OF CARE. PT HAS BEEN DOING WELL A ONE PERSON ASSIST WITH GAITBELT AND FRONT WHEEL WALKER. PT HAS BEEN HAVING BACK PAIN AND IS TREATED PER EMAR. PT ALSO HAS HAD SPIKES WITH BP TODAY. HOME BP MEDS WAS BROUGHT IN, BUT BP HAS INCREASED DR WRIGHT WAS NOTIFIED AND MEDICATION ADDED TO EMAR. BACK INCISION BANDAGE CHANGED AND LOOKS VERY GOOD. WILL CONTINUE TO MONITOR.
--- NOTE | 2020-11-12 18:32 | NUR ---
PT HAS HAD HIGH BP IN THE AFTERNOON AND TREATED WITH NEW MED ON EMAR PER DR WRIGHT. LAST BP WAS 150/73.
[2020-11-13 05:27] LABS: BASOPHILS ABSOLUTE AUTO 0.04 K/mm3 (0.00-0.23); BASOPHILS PERCENT AUTO 0 % (0-2); EOSINOPHILS ABSOLUTE AUTO 0.28 K/mm3 (0.00-0.68); EOSINOPHILS PERCENT AUTO 3 % (0-6); Hematocrit 36.5 % (33.0-51.0); Hemoglobin 11.6 g/dL (11.5-16.0); IMMATURE GRAN ABSOLUTE AUTO 0.14 K/mm3 (0.00-0.10); IMMATURE GRAN PERCENT AUTO 1 % (0-1); LYMPHOCYTES ABSOLUTE AUTO 1.81 K/mm3 (0.84-5.20); LYMPHOCYTES PERCENT AUTO 16 % (21-46); MONOCYTES ABSOLUTE AUTO 1.04 K/mm3 (0.16-1.47); MONOCYTES PERCENT AUTO 9 % (4-13); Mean Corpuscular HGB 28.6 pg (26.0-34.0); Mean Corpuscular HGB Conc 31.8 g/dL (31.5-36.5); Mean Corpuscular Volume 90 fL (80-100); Mean Platelet Volume 9.4 fL (9.1-12.4); NEUTROPHILS ABSOLUTE AUTO 7.71 K/mm3 (1.96-9.15); NEUTROPHILS PERCENT AUTO 70 % (41-73); Platelet Count 417 K/mm3 (150-400); RDW Coefficient Variation 14.4 % (11.7-14.2); RDW Standard Deviation 47.7 fL (35.1-46.3); Red Blood Cell Count 4.05 M/mm3 (3.80-5.20); White Blood Cell Count 11.02 K/mm3 (4.00-11.30)
[2020-11-13 05:51] LABS: Albumin, Blood 2.5 g/dL (3.4-5.0); Anion Gap 6 mmol/L (6-16); Blood Urea Nitrogen 14 mg/dL (8-24); Bun/Creatinine Ratio 20.6 (12.0-20.0); CO2, Blood 27 mmol/L (21-32); Calcium, Blood 8.3 mg/dL (8.5-10.1); Chloride, Blood 106 mmol/L (98-108); Creatinine, Blood 0.68 mg/dL (0.40-1.00); Glomerular Filtration Rate >60 (60-); Glucose, Blood 142 mg/dL (70-99); Phosphorus, Blood 3.2 mg/dL (2.5-4.9); Potassium, Blood 3.4 mmol/L (3.5-5.5); Sodium, Blood 139 mmol/L (136-145)
--- NOTE | 2020-11-13 17:09 | NUR ---
SHIFT SUMMARY- PT IS A/O, PLESANT AND COOPERATIVE. SHE IS EATING AND DRINKING WELL. SHE IS RETAINING URINE. STRAIGHT CATH TWICE THIS SHIFT. SHE COMPLAINS OF ABDOMINAL PAIN. SLEPT INTERMITENTLY DURING THIS SHIFT. HER WAS AT BEDSIDE THIS AFTERNOON. HER BED IS IN THE LOW POSITION AND CALL LIGHT IS WITHIN REACH.
--- NOTE | 2020-11-14 07:21 | NUR ---
SUMMARY PT CONTINUES TO HAVE ISSUES WITH PAIN AND NAUSEA. PT REFUSED TO TAKE PM MEDS DUE TO NAUSEA. PT TRIED ZOFRAN W/ NO RELIEF. PT REPORTS SHE IS NOT HAVING RELIEF FROM CURRENT ANTIEMETICS. CALLED DR GUTIÉRREZ AND HE ORDERED OT 50 MCG FENTANYL AND PO ATIVAN. PT WAS ABLE TO RELAX AND SLEEP FOR A FEW HOURS. PT CALL LIGHT IN REACH.
--- NOTE | 2020-11-14 18:21 | NUR ---
PATIENT A/OX4, UP WITH FWW AND 1 ASSIST. HX OF PARKINSON'S WITH BUE TREMORS. NAUSEA AND PAIN HAVE IMPROVED AND DID NOT HAVE TO BE TREATED THIS SHIFT. BLOOD PRESSURE CONTROL HAS IMPROVED WITH ORAL MEDICATION. JOHN TO GRAVITY, ADEQUATE U/O. VSS, ON RA. ABLE TO MAKE NEEDS KNOWN. POWERGLIDE TO GUY WNL AND SL. TOLERATING SMALL AMOUNTS OF VEGETARIAN DIET. COOPERATIVE WITH CARE. SUPPORTIVE AND AT BEDSIDE THIS EVENING.
--- NOTE | 2020-11-15 06:10 | NUR ---
SHIFT SUMMARY PT IS A 70 Y/O FEMALE, ADMITTED FOR SEPSIS R/T PNA AND COLITIS. PT IS A&O X 4, THOUGH VERY ANXIOUS WITH BASELINE TREMORS R/T HX OF PARKINSONS. PT IS A 1PA TO THE BSC, THOUGH NEEDS ENCOURAGEMENT TO MOVE AND STAND. SHE WAS MEDICATED ONCE FOR PAIN WITH PRN FENTANYL. NO C/O NAUSEA OR SOB. VITAL SIGNS STABLE. PT REQUESTED MULTIPLE TIMES TO GET UP TO THE BSC, BUT WAS UNABLE TO HAVE A BM. JOHN IN PLACE FOR RETENTION, PATENT AND DRAINING. NO ACUTE CHANGES IN PT CONDITION NOTED DURING THE NIGHT. WILL CONTINUE TO MONITOR AND TREAT PER EMAR UNTIL HAND OFF TO DAY SHIFT RN.
[2020-11-15 06:16] LABS: Albumin, Blood 2.4 g/dL (3.4-5.0); Anion Gap 6 mmol/L (6-16); Blood Urea Nitrogen 15 mg/dL (8-24); Bun/Creatinine Ratio 21.9 (12.0-20.0); CO2, Blood 26 mmol/L (21-32); Chloride, Blood 105 mmol/L (98-108); Creatinine, Blood 0.69 mg/dL (0.40-1.00); Glomerular Filtration Rate >60 (60-); Glucose, Blood 110 mg/dL (70-99); Phosphorus, Blood 3.1 mg/dL (2.5-4.9); Potassium, Blood 3.8 mmol/L (3.5-5.5); Sodium, Blood 137 mmol/L (136-145)
--- NOTE | 2020-11-15 18:31 | NUR ---
SHIFT SUMMARY- PT HAS HAD NO ACUTE CHANGE T/O THE SHIFT PRN PAIN MEDS GIVEN THIS EVENING PT STATES SHE HAS PAIN IN HER LEFT LOWER RIB (LIKE A STITCH IN HER SIDE PER PT). PT BECAME ANXIOUS AND REQUESTED A BP CHECK WHICH SHOWED ELEVATED PRESSURE. MEDICATED PT WITH PRN CLONIDINE. MAJOR GIFTS DIRECTOR ASSISTED THE PT BACK TO THE BED AT SHIFT CHANGE. MEDICATED FOR PAIN WITH IV FENTANYL AND PT TRAMADOL. NIGHT RN TO TRY PRN HYDRALIZINE IF CLONIDINE IS INEFFECTIVE.
--- NOTE | 2020-11-16 13:26 | NUR ---
Pt resting in chair upon arrial. Pt being D/C home and visit was brief. Pt denies pain, dyspnea, and nausea. Pt denies anxiety. Pt reports eagerness to return home. Pt reports adequate support at home. Engaged in therapeutic discussion regarding advanced directives. Pt agreeable to take home and discuss with family. Pt reports no concerns at this time. Palliative Care will remain available.
[2020-11-16] MEDS ORDERED: ACET325 PO (13:34)
--- NOTE | 2020-11-16 16:34 | NUR ---
PT AOX4 AND COOPERATIVE OF CARE. PT DISCHARGED AT 1330 WITH SON TO TRANSPORT HOME. PT HAD ALL PAPERWORK REVIEWED AND EDUCATIONAL MATERIAL SENT HOME. PT DOING WELL NO DISTRESS NOTED AT THIS TIME. ALL PERSONAL BELONIGS WERE WITH PT AND PT WAS WEARING HER BACK BRACE TO GO HOME. PT ESCORTED OUT VIA WHEEL CHAIR TO N ENTRANCE.
== END 2020-11-16 13:59 | disposition home health service (06) | DRG 871 ==
LOC: ER 08:52 → MEDS 15:07
PROVIDERS: Emergency Medicine; Family Medicine; Internal Medicine; Nurse Practitioner Acute Care; ADMIT Internal Medicine
DX: A41.9 Sepsis, unspecified organism (principal); G92 Toxic encephalopathy; J18.9 Pneumonia, unspecified organism; F11.20 Opioid dependence, uncomplicated; J98.11 Atelectasis; A09 Infectious gastroenteritis and colitis, unspecified; Z90.12 Acquired absence of left breast and nipple; R65.20 Severe sepsis without septic shock; G20 Parkinson's disease; I10 Essential (primary) hypertension; E66.01 Morbid (severe) obesity due to excess calories; F41.1 Generalized anxiety disorder; G89.4 Chronic pain syndrome; Z98.1 Arthrodesis status; Z68.38 Body mass index [BMI] 38.0-38.9, adult; K21.9 Gastro-esophageal reflux disease without esophagitis; R33.9 Retention of urine, unspecified
CPT/HCPCS: 0241U; 36415; 70450; 71045; 71100; 74018; 74177; 80048; 80053; 80069; 81001; 82803; 83605; 83735; 84145; 85025; 87040; 87086; 93005; 93010; 94760; 96361; 96365; 96366; 96375; 97110; 97116; 97162; 97166; 97530; 97535; 99285-25; A9270; C1751; J0360; J0696; J0780; J1650; J1885; J2405; J2765; J3010; J7030; J7060; J7120; Q9967

== ENCOUNTER → 2020-12-26 | Outpatient (CLI) | payer MEDICARE, OTHER ==
[~2020-12-26] MED LIST changes: +ACET325 PO; +CARBLEV25 SL; +CYCL10 PO; +FURO40 PO; +K-Dur10 MEQ PO; +OXYC10TA19 PO; +PREG50 PO
[2020-12-26 15:30] LABS: BASOPHILS ABSOLUTE AUTO 0.03 K/mm3 (0.00-0.23); BASOPHILS PERCENT AUTO 0 % (0-2); EOSINOPHILS ABSOLUTE AUTO 0.03 K/mm3 (0.00-0.68); EOSINOPHILS PERCENT AUTO 0 % (0-6); Hematocrit 40.5 % (33.0-51.0); Hemoglobin 12.5 g/dL (11.5-16.0); IMMATURE GRAN ABSOLUTE AUTO 0.03 K/mm3 (0.00-0.10); IMMATURE GRAN PERCENT AUTO 0 % (0-1); LYMPHOCYTES ABSOLUTE AUTO 2.84 K/mm3 (0.84-5.20); LYMPHOCYTES PERCENT AUTO 34 % (21-46); MONOCYTES ABSOLUTE AUTO 0.62 K/mm3 (0.16-1.47); MONOCYTES PERCENT AUTO 8 % (4-13); Mean Corpuscular HGB 26.9 pg (26.0-34.0); Mean Corpuscular HGB Conc 30.9 g/dL (31.5-36.5); Mean Corpuscular Volume 87 fL (80-100); Mean Platelet Volume 10.3 fL (9.1-12.4); NEUTROPHILS ABSOLUTE AUTO 4.77 K/mm3 (1.96-9.15); NEUTROPHILS PERCENT AUTO 57 % (41-73); Platelet Count 493 K/mm3 (150-400); RDW Coefficient Variation 13.6 % (11.7-14.2); RDW Standard Deviation 43.6 fL (35.1-46.3); Red Blood Cell Count 4.64 M/mm3 (3.80-5.20); White Blood Cell Count 8.32 K/mm3 (4.00-11.30)
[2020-12-26 15:51] LABS: Alanine Aminotransfer (ALT/SGP 14 U/L (12-78); Albumin, Blood 3.4 g/dL (3.4-5.0); Albumin/Globulin Ratio 0.9 (0.8-1.8); Alk Phos 114 U/L (50-136); Anion Gap 4 mmol/L (6-16); Aspartate Aminotrans (AST/SGOT 10 U/L (12-37); Bilirubin, Total 0.6 mg/dL (0.1-1.0); Blood Urea Nitrogen 9 mg/dL (8-24); Bun/Creatinine Ratio 13.4 (12.0-20.0); CO2, Blood 30 mmol/L (21-32); Calcium, Blood 10.1 mg/dL (8.5-10.1); Chloride, Blood 103 mmol/L (98-108); Creatinine, Blood 0.67 mg/dL (0.40-1.00); Globulin, Blood 3.8 g/dL (2.2-4.0); Glomerular Filtration Rate >60 (60-); Glucose, Blood 111 mg/dL (70-99); Potassium, Blood 4.3 mmol/L (3.5-5.5); Sodium, Blood 137 mmol/L (136-145); Total Protein, Blood 7.2 g/dL (6.4-8.2)
== END | disposition home or self-care (01) ==
LOC: LAB SHORT 14:30 → LAB 14:30
PROVIDERS: Family Medicine
DX: N30.00 Acute cystitis without hematuria (principal)
CPT/HCPCS: 80053; 85025; 87077; 87086; 87186

== ENCOUNTER → 2021-01-18 | Outpatient (CLI) | payer MEDICARE, OTHER | END | disposition home or self-care (01) | LOC: LAB SHORT 10:45 | DX: R30.0 Dysuria (principal) | CPT/HCPCS: 87077; 87086; 87186 ==

== ENCOUNTER → 2021-02-03 | Outpatient (CLI) | payer MEDICARE, OTHER ==
[2021-02-03 15:40] LABS: Source, Urine Clean Catch
[2021-02-03 16:38] LABS: Appearance, Urine Clear (Clear); Bilirubin, Urine Neg (Neg); Blood, Urine 1+ (Neg); Color, Urine Yellow (P-Yellow); Glucose Qualitative, Urine Neg (Neg); Ketones, Urine Neg (Neg); Leukocyte Esterase, Urine Neg (Neg); Nitrite, Urine Neg (Neg); Protein, Urine Neg (Neg); Urobilinogen, Urine NORM (Normal); pH, Urine 6.5 (5.0-8.0)
[2021-02-03 17:06] LABS: Squamous Epithelial Cells Few /hpf (Few); White Blood Cells, Urine 0-2 /hpf (0-5)
[2021-02-03 17:07] LABS: Bacteria Rare /hpf; Yeast/Fungi Urine Rare /hpf
== END | disposition home or self-care (01) ==
LOC: LAB SHORT 11:50 → LAB 11:50
PROVIDERS: Physician Assistant Medical
DX: A49.9 Bacterial infection, unspecified (principal)
CPT/HCPCS: 81001

== ENCOUNTER 2023-02-01 19:16 | Inpatient (IN) | payer MEDICARE, OTHER ==
[~2023-02-01] VITALS: Ht 172.7 cm; Wt 67.6 kg
[2023-02-01 20:01] LABS: BASOPHILS ABSOLUTE AUTO 0.04 K/mm3 (0.00-0.23); BASOPHILS PERCENT AUTO 0 % (0-2); EOSINOPHILS PERCENT AUTO 0 % (0-6); Hematocrit 41.1 % (33.0-51.0); Hemoglobin 13.8 g/dL (11.5-16.0); IMMATURE GRAN ABSOLUTE AUTO 0.24 K/mm3 (0.00-0.10); IMMATURE GRAN PERCENT AUTO 1 % (0-1); LYMPHOCYTES ABSOLUTE AUTO 1.55 K/mm3 (0.84-5.20); LYMPHOCYTES PERCENT AUTO 7 % (21-46); MONOCYTES ABSOLUTE AUTO 1.79 K/mm3 (0.16-1.47); MONOCYTES PERCENT AUTO 8 % (4-13); Mean Corpuscular HGB 29.7 pg (26.0-34.0); Mean Corpuscular HGB Conc 33.6 g/dL (31.5-36.5); Mean Corpuscular Volume 89 fL (80-100); Mean Platelet Volume 9.9 fL (9.1-12.4); NEUTROPHILS PERCENT AUTO 85 % (41-73); Platelet Count 391 K/mm3 (150-400); RDW Coefficient Variation 12.1 % (11.7-14.2); RDW Standard Deviation 39.6 fL (35.1-46.3); Red Blood Cell Count 4.64 M/mm3 (3.80-5.20); White Blood Cell Count 23.82 K/mm3 (4.00-11.30)
[2023-02-01 20:18] LABS: Albumin, Blood 3.2 g/dL (3.4-5.0); Albumin/Globulin Ratio 0.9 (0.8-1.8); Bilirubin, Total 1.6 mg/dL (0.1-1.0); Bun/Creatinine Ratio 25.4 (12.0-20.0); Calcium, Blood 9.2 mg/dL (8.5-10.1); Creatinine, Blood 0.75 mg/dL (0.40-1.00); Globulin, Blood 3.7 g/dL (2.2-4.0); Potassium, Blood 4.1 mmol/L (3.5-5.5); Total Protein, Blood 6.9 g/dL (6.4-8.2)
[2023-02-01 22:45] LABS: Source, Urine Straight Cath
[2023-02-01 22:51] LABS: Bilirubin, Urine Neg (Neg); Blood, Urine 5+ (Neg); Glucose Qualitative, Urine Neg (Neg); Ketones, Urine 3+ (Neg); Leukocyte Esterase, Urine 1+ (Neg); Nitrite, Urine Neg (Neg); Protein, Urine 2+ (Neg); Urobilinogen, Urine 1+ (Normal)
[2023-02-01 23:02] LABS: Appearance, Urine Hazy (Clear); Color, Urine Yellow (P-Yellow)
[2023-02-01 23:04] LABS: Bacteria Mod /hpf; Squamous Epithelial Cells Few /hpf (Few); White Blood Cells, Urine 0-2 /hpf (0-5)
[2023-02-02] VITALS (9 sets, daily range): BP systolic 149–176; BP diastolic 75–114
[2023-02-02] MEDS ORDERED: CATAPRES0.1 MG PO (01:38)
[2023-02-02 01:51] LABS: BASOPHILS ABSOLUTE AUTO 0.03 K/mm3 (0.00-0.23); BASOPHILS PERCENT AUTO 0 % (0-2); EOSINOPHILS PERCENT AUTO 0 % (0-6); Hematocrit 39.3 % (33.0-51.0); Hemoglobin 13.4 g/dL (11.5-16.0); IMMATURE GRAN ABSOLUTE AUTO 0.25 K/mm3 (0.00-0.10); IMMATURE GRAN PERCENT AUTO 1 % (0-1); LYMPHOCYTES ABSOLUTE AUTO 1.82 K/mm3 (0.84-5.20); LYMPHOCYTES PERCENT AUTO 9 % (21-46); MONOCYTES ABSOLUTE AUTO 1.63 K/mm3 (0.16-1.47); MONOCYTES PERCENT AUTO 8 % (4-13); Mean Corpuscular HGB 30.5 pg (26.0-34.0); Mean Corpuscular HGB Conc 34.1 g/dL (31.5-36.5); Mean Corpuscular Volume 89 fL (80-100); NEUTROPHILS ABSOLUTE AUTO 17.03 K/mm3 (1.96-9.15); NEUTROPHILS PERCENT AUTO 82 % (41-73); Platelet Count 360 K/mm3 (150-400); RDW Coefficient Variation 12.3 % (11.7-14.2); RDW Standard Deviation 40.2 fL (35.1-46.3); White Blood Cell Count 20.76 K/mm3 (4.00-11.30)
[2023-02-02] MEDS ORDERED: Percocet 10-321 EACH PO ×2 (02:00→02:01)
[2023-02-02 02:06] LABS: Albumin/Globulin Ratio 0.9 (0.8-1.8); Bilirubin, Total 1.1 mg/dL (0.1-1.0); Bun/Creatinine Ratio 23.7 (12.0-20.0); Calcium, Blood 8.8 mg/dL (8.5-10.1); Creatinine, Blood 0.76 mg/dL (0.40-1.00); Free Thyroxine 1.11 ng/dL (0.70-1.60); Globulin, Blood 3.5 g/dL (2.2-4.0); Potassium, Blood 4.2 mmol/L (3.5-5.5); Thyroid Stimulating Hormone 2.3 uIU/mL (0.360-4.800); Total Protein, Blood 6.5 g/dL (6.4-8.2)
--- NOTE | 2023-02-02 02:54 | NUR ---
PATIENT IS A NEW ADMIT FROM THE ED. HEAVY FOUR PERSON TRANSFER FROM [facility] TO BED. AXOX 3 WITH CONFUSION AND ANXIETY. SON PRESENT IN ROOM FOR ADMIT. ON ROOM AIR. DENIES CHEST PAIN, SOB, AND N/V. REPORTED RIGHT SHOULDER PAIN AND IN FENTANYL 25 MCG GIVEN PER EMAR. ORIENT TO ROOM AND CALL LIGHT SYSTEM. WCTM.
[2023-02-02 05:21] LABS: Campylobacter Sp Not Detected (NOT DETECT)
[2023-02-02 05:22] LABS: Adenovirus F 40/41 Not Detected (NOT DETECT); Astrovirus Not Detected (NOT DETECT); Cryptosporidium Not Detected (NOT DETECT); Cyclospora Cayetanensis Not Detected (NOT DETECT); E. Coli O157 Not Detected (NOT DETECT); Entamoeba Histolytica Not Detected (NOT DETECT); Enteroaggregative E. coli-EAEC Not Detected (NOT DETECT); Enteropathogenic E. coli-EPEC Not Detected (NOT DETECT); Enterotoxigenic E. coli-ETEC Not Detected (NOT DETECT); Giardia Lamblia Not Detected (NOT DETECT); Norovirus GI/GII Not Detected (NOT DETECT); Plesiomonas Shigelloides Not Detected (NOT DETECT); Rotavirus A Not Detected (NOT DETECT); Salmonella Sp Not Detected (NOT DETECT); Sapovirus Not Detected (NOT DETECT); Shiga Toxin-prod E. coli-STEC Not Detected (NOT DETECT); Shigella/Enteroin E. coli-EIEC Not Detected (NOT DETECT); Vibrio Cholerae Not Detected (NOT DETECT); Vibrio Sp Not Detected (NOT DETECT); Yersinia Enterocolitica Not Detected (NOT DETECT)
--- NOTE | 2023-02-02 06:52 | NUR ---
BP 176/87,HOSPITALIST DR READ ORDERED IV APRESOLINE 10 MG Q6 FOR SBP>160. BP 155/100 AFTER GIVEN IV APRESOLINE 10 MG
--- NOTE | 2023-02-02 10:00 | NUR ---
DR PAREDES AND PATIENTS CAREGIVER IN ROOM NOW
--- NOTE | 2023-02-02 17:16 | NUR ---
CAREGIVER AT BEDSIDE, HELPFUL WITH CARE, ABD CT DONE, NPO TELE NSR 68, ST/OT/PT ORDERED FOR TOMORROW, PATIENT UNABLE TO CLEARLY SWALLOW REFUSING PO MEDICATIONS. MEDICATED WITH PERCOCET, FENTANYL, ATARAX, WITHOUT ANY RELIEF. REPORTED TO DR PAREDES, ATIVAN PRN STARTED, PATIENT RESTING WITHOUT GRIMACE OR COMPLAINTS. SHALLOW RESPIRATIONS, BECOMES VERY UNCONSOLABLE WITH PAIN AND ANXIETY. CONT/INCONT ATTENDS CDI, LIQUID STOOLS. RESPOSITIONED ONE-TWO PERSON, CALL LIGHT WITH IN REACH
[2023-02-02] MEDS ORDERED: HYDHCL10EL PO (22:23)
[2023-02-03] VITALS (9 sets, daily range): BP systolic 146–222; BP diastolic 68–154
--- NOTE | 2023-02-03 04:05 | NUR ---
PT RESTING IN BED, PT SON AT BEDSIDE MOST OF NIGHT. PT SEEMED TO SLEEP MOST OF THE NIGHT. BUT AWAKENS AND IS AJITATED WHEN PAIN MEDS AND ATIVAN ARE DUE. ATTEMPTED TO CRUSH AND ADD WATER TO PAIN MED AND GIVE WITH SYRINGE PT SPITS OUT ANYTHING ORAL, BUT SEEMED TO NOT SPIT OUT VANCO. PT STILL HAVING SOME LIQ STOOLS BUT SEEMS TO BE A LITTLE THICKER AND LESS LIQ. OINTMENT APPLYED TO RECTAL AREA.
[2023-02-03 05:42] LABS: BASOPHILS ABSOLUTE AUTO 0.03 K/mm3 (0.00-0.23); BASOPHILS PERCENT AUTO 0 % (0-2); EOSINOPHILS PERCENT AUTO 0 % (0-6); Hematocrit 39.8 % (33.0-51.0); Hemoglobin 13.2 g/dL (11.5-16.0); IMMATURE GRAN ABSOLUTE AUTO 0.17 K/mm3 (0.00-0.10); IMMATURE GRAN PERCENT AUTO 1 % (0-1); LYMPHOCYTES ABSOLUTE AUTO 1.25 K/mm3 (0.84-5.20); LYMPHOCYTES PERCENT AUTO 7 % (21-46); MONOCYTES ABSOLUTE AUTO 1.15 K/mm3 (0.16-1.47); MONOCYTES PERCENT AUTO 7 % (4-13); Mean Corpuscular HGB 29.9 pg (26.0-34.0); Mean Corpuscular HGB Conc 33.2 g/dL (31.5-36.5); Mean Corpuscular Volume 90 fL (80-100); Mean Platelet Volume 10.2 fL (9.1-12.4); NEUTROPHILS ABSOLUTE AUTO 14.76 K/mm3 (1.96-9.15); NEUTROPHILS PERCENT AUTO 85 % (41-73); Platelet Count 404 K/mm3 (150-400); RDW Coefficient Variation 12.3 % (11.7-14.2); Red Blood Cell Count 4.42 M/mm3 (3.80-5.20); White Blood Cell Count 17.36 K/mm3 (4.00-11.30)
[2023-02-03 06:19] LABS: Albumin, Blood 3.2 g/dL (3.4-5.0); Anion Gap 9 mmol/L (6-16); Blood Urea Nitrogen 24 mg/dL (8-24); CO2, Blood 23 mmol/L (21-32); Calcium, Blood 9.1 mg/dL (8.5-10.1); Chloride, Blood 106 mmol/L (98-108); Creatinine, Blood 0.63 mg/dL (0.40-1.00); Glomerular Filtration Rate 94 (60-); Glucose, Blood 125 mg/dL (70-99); Magnesium, Blood 1.9 mg/dL (1.6-2.4); Phosphorus, Blood 2.4 mg/dL (2.5-4.9); Potassium, Blood 3.7 mmol/L (3.5-5.5); Sodium, Blood 138 mmol/L (136-145)
--- NOTE | 2023-02-03 06:26 | NUR ---
PT CHANGED AND REPOSITIONED STOOL HAS STARED TO BECOME FORMED. CALL LIGHT IN REACH.
[2023-02-03 10:29] LABS: C-REACTIVE PROTEIN, EXT RANGE 15.5 mg/dL (0.000-0.300); Prolactin 13.9 ng/mL (2.74-19.64)
--- NOTE | 2023-02-03 10:32 | NUR ---
NOTIFIED DR. PAREDES ABOUT PT'S HR IN THE 130'S IN PERSON AND HIGH BP. ALSO NOTIFIED MD ABOUT PT NOT OPENING HER MOUTH OR FOLLOWING CUES AFTER SPEECH EVAL. NOTIFIED RN COULD NOT ADMINISTER MORNING PO MEDS.
--- NOTE | 2023-02-03 13:39 | NUR ---
VERBAL TO ORDER LR @ [address] PAREDES.
--- NOTE | 2023-02-03 13:40 | NUR ---
Initial palliative care consult: Mary is a 72 year old with a history of UTIs, obesity, Parkinson's disease, HTN, and anxiety. She was admitted on 02/02/23 with several days of weakness, diarrhea and decreased PO intake. Chart reviewed. Mary has caregivers that assist with her care at home. Mary's and three sons are present in room while this senior grant writer and Dr. Ho met with family. Mary moans at times, occasionally is able to say a word that is recognizable. Her son, Lorenzo, states he is having a hard time trying to figure out what she is saying. Mary has five sons, the three who live locally are at the bedside. Dr. Ho explained current status and treatment plan at this time to family. Dr. Ho answered their questions. At this time Nghia states that he wants "everything done for her to survive this." Family reports she had an infection in the past due to diverticulitis and was very sick. She was able to rebound from that illness and they hope that she will be able to do the same again. She is spitting out frothy fluid from her mouth which her family states is not unusual for her. Medicated with IV zofran for nausea. Peppermint lip balm applied to Mary's lips for comfort per family's request. She is anxious at times, vocalizing words that incomprehensable. Occasionally she will say her name out loud. NPO status explained to her family at this time. Questions answered, they verbalize understanding. Powerglide placed after family meeting in her room per PCU charge machine operator. Nursing updated by Dr. Ho as well as PC nurse. Established rapport with Mary and her family today. Will attempt gentle advanced care planning in the coming days. At this time Nghia along with their three boys are very clear in their goals for her treatment. PC to follow.
--- NOTE | 2023-02-03 16:00 | NUR ---
Pt's spouse came to PC office with a concern that pt has not received her oral vanco solution yet. Reviewed ST notes. ST not available at this time. Spoke with nursing. Pt able to take oral pain medication eariler this afternoon in buccel without difficulty. Suction set up at bedside. Pt able to tolerate PO vancomycin without any difficulty. Family had to encourage pt to open her mouth to take. Pt's spouse states that she sometimes likes to refuse things at home. Spouse, Nghia, reports that they have caregivers M-F who assist with meds, meals, cleaning and ADLs as needed. He is her caregiver during the weekends. He reports Mary is able to ambulate with walker up until this admission. Nghia reports that he and Mary have had conversations about advanced care planning and when asked about her wishes he states "Keep her alive." Mary appears to be a little more alert this afternoon. She opens her eyes when this senior medical writer was in the room, she did not do this earlier. PC to continue to assist with symptom managment and advanced care planning.
--- NOTE | 2023-02-03 16:47 | NUR ---
UPDATED DR. PAREDES ON PT'S HR, BP, TAKING ORAL ABX, AND CURRENT OVERALL CONDITION.
--- NOTE | 2023-02-03 17:07 | NUR ---
RN TOLD FAMILY SHE DID NOT FEEL COMFORTABLE GIVING PT HER ORAL VANCOMYCIN DUE TO PT NOT FOLLOWING COMMANDS/NOT SWALLOWING/NOT OPENING HER MOUTH/BEING NON RESPONSIVE/BEING NPO/HAVING SPEECH THERAPY KEEP PT NPO AFTER SPEECH EVAL TODAY. FAMILY REFUSED AND DEMANDED RN GIVE THE ORAL ANTIBIOTIC. FAMILY HAD PT AT 15 DEGREES AND ADMINISTERED ORAL VANCOMYCIN OVER THE COURSE OF 10 MINUTES. SON FORCED SYRINGE IN THE PT'S MOUTH INTO HER CHEEK AND ADMINISTERED THE FLUID. AFTER SEVERAL MINUTES AND COACHING, THE PT SWALLOWED PART OF THE FLUID. DURING THIS, THE PT WAS MOANING AND SAYING, "NO NO NO." RN SCANNED THE MEDICATION, BUT NEVER ADMINISTERED IT. PT IS ONLY RESPONSIVE TO PAIN AND IS UNABLE TO COMMUNICATE.
--- NOTE | 2023-02-03 19:50 | NUR ---
SUMMARY- PT'S HR IN THE 130'S ALL SHIFT. AWARE. PT HAD LOW-GRADE TEMP AT THE END OF THE SHIFT. PT BARELY ABLE TO TAKE ORAL VANCOMYCIN PO. PT IS STILL NPO AND FAMILY IS INSISTING PT BE GIVEN PO WATER AND ANTIBIOTICS. FAMILY EDUCATED ON ASPIRATION RISK VS BENEFITS. MD AWARE OF HIGH BP'S. PT AAOX0-CANNOT RESPOND TO QUESTIONS. 2 PERSON MAX ASSIST IN BED.
--- NOTE | 2023-02-04 04:28 | NUR ---
SHIFT SUMMERY, PT SEEMED TO BE EVEN MORE TREMULUS TO NIGHT. PT HAS NOT BEEN ABLE TO TAKE PARKENSONS MEDS FOR A FEW DAYS. PT NOT INTERACTING. PT HR IN THE 130S AND AT TIMES 140S. DR VILLA PT HAD A CLONIDINE PACH PLACED TO DAY. PT WAS GIVEN PRN HYDRALAZINE FOR ELEVATED BP. PT ALSO GIVEN ATIVAN FOR ANXIETY, PT HAS ORAL PAIN MEDICATION. PT SPITTING BUBBLES OFFTEN AND WOULD NOT SWALLOW MEDS BUT KEPT SPITTING BUBBLES BUT NEARLY ALL OF MEDS SEEMED TO BE TAKEN. ONLY SM AMOUNTS OF PINK TINGED SPIT CAME OUT. PTS HAD 4 SONS AL HERE INTERMITANTLY DURING DAY AND NIGHT, ALL VERY CONCERNED AND WORRIED ABOUT ANY MED GIVEN OR ANYTHING DONE FOR PT. AT THIS TIME MIDDLE SON AT BEDSIDE WITH PT. CALL LIGHT IN REACH.
[2023-02-04 05:02] LABS: BASOPHILS ABSOLUTE AUTO 0.03 K/mm3 (0.00-0.23); BASOPHILS PERCENT AUTO 0 % (0-2); EOSINOPHILS ABSOLUTE AUTO 0.01 K/mm3 (0.00-0.68); EOSINOPHILS PERCENT AUTO 0 % (0-6); Hematocrit 38.8 % (33.0-51.0); IMMATURE GRAN ABSOLUTE AUTO 0.19 K/mm3 (0.00-0.10); IMMATURE GRAN PERCENT AUTO 1 % (0-1); LYMPHOCYTES ABSOLUTE AUTO 1.06 K/mm3 (0.84-5.20); LYMPHOCYTES PERCENT AUTO 6 % (21-46); MONOCYTES PERCENT AUTO 9 % (4-13); Mean Corpuscular HGB 30.1 pg (26.0-34.0); Mean Corpuscular HGB Conc 33.5 g/dL (31.5-36.5); Mean Corpuscular Volume 90 fL (80-100); Mean Platelet Volume 9.5 fL (9.1-12.4); NEUTROPHILS ABSOLUTE AUTO 13.68 K/mm3 (1.96-9.15); NEUTROPHILS PERCENT AUTO 83 % (41-73); Platelet Count 436 K/mm3 (150-400); RDW Coefficient Variation 12.7 % (11.7-14.2); RDW Standard Deviation 42.3 fL (35.1-46.3); Red Blood Cell Count 4.32 M/mm3 (3.80-5.20); White Blood Cell Count 16.47 K/mm3 (4.00-11.30)
[2023-02-04 05:22] VITALS: BP 174/79
[2023-02-04 05:34] LABS: Albumin, Blood 3.2 g/dL (3.4-5.0); Anion Gap 9 mmol/L (6-16); Blood Urea Nitrogen 25 mg/dL (8-24); Bun/Creatinine Ratio 42.7 (12.0-20.0); CO2, Blood 24 mmol/L (21-32); Calcium, Blood 9.2 mg/dL (8.5-10.1); Chloride, Blood 107 mmol/L (98-108); Creatinine, Blood 0.59 mg/dL (0.40-1.00); Glomerular Filtration Rate 96 (60-); Glucose, Blood 142 mg/dL (70-99); Phosphorus, Blood 2.1 mg/dL (2.5-4.9); Potassium, Blood 3.4 mmol/L (3.5-5.5); Sodium, Blood 140 mmol/L (136-145)
[2023-02-04 05:50] VITALS: BP 176/79
[2023-02-04 07:51] VITALS: BP 141/68
--- NOTE | 2023-02-04 08:16 | NUR ---
MD CALL PER FARM MANAGEMENT TEACHER PT UNABLE TO GET MRI DUE TO IMPLANTED STIMULATIOR. DR PAREDES INFORMED AND MRI ORDER CALLED PER .
--- NOTE | 2023-02-04 12:25 | NUR ---
NG TUBE PLACED THIS MORNING, XRAY CONFIRMATION OF PLACEMENT ORDERED PT DROWSY. DR PAREDES GAVE TO TO GIVE AM MEDS WHEN PLACEMENT CONFIRMED.
[2023-02-04 12:52] VITALS: BP 168/98
--- NOTE | 2023-02-04 12:59 | NUR ---
NG TUBE PLACEMENT I WAS PRESENT DURING THE NG TUBE PLACENT WITH THE STUDENT NURSE HERNÁN. THE PLACEMENT WAS CHECKED WITH AIR AND ASPIRATION. AN CONFIRMED WITH X-RAY
--- NOTE | 2023-02-04 13:49 | NUR ---
Stopped in to check on Mary today. Her is at her bedside. She had an NG tube placed earlier this shift. She is currently sleeping with her CPAP machine in. She appears comfortable at this time. Her has no requests at this time. He states she is doing better today. Encouraged self care for him. PC to continue to follow for advanced care planning and symptom management prn.
--- NOTE | 2023-02-04 15:26 | NUR ---
SHIFT SUMMARY MS DYE HAS BEEN DROWSY TODAY. SHE OPENS HER EYES TO STIMULI, SEEMS TO RECOGNISE THAT HER FAMILY IS AT HER BEDSIDE. CAN SQUEEZE HANDS ON REQUEST. HAS BEEN NON VERBAL TODAY. UNABLE TO SWALLOW MEDICATIONS - NGT PLACED AND CONFIRMED BY XRAY. MEDS GIVEN, INCLUDING AM MEDS THAT WERE MISSED. WATER BOLUS 250CC/Q6HRS STARTED VIA NGT AND IVF CONTINUE AT 100CC/HR. SHE HAS VOIDED ONCE TODAY, INCONTINENT VOID AND INCONTINENT OF SOFT BROWN FORMED STOOL. ON CONTINUOUS PULSE OX LOW 90S ON RA WITH CPAP ON. TELE ST THIS AM, AT 1317 SHE WAS 130S. BY 1355 70S TO 80S SINUS RHYTHM. SHE HAS PARKINSONS TREMOR BUT LOOKS COMFORTABLE WITH FAMILY AT HER BEDSIDE. MACHINE ERECTOR CONSULT IN, NOT AVAILABLE ON SUNDAY. S/B GI - PLAN FOR COLONOSCOPY TOMORROW 12/06. 2 PERSON ASSIST TO TURN IN BED. BED LOW, CALL LIGHT IN REACH.
[2023-02-04 15:33] VITALS: BP 155/79
[2023-02-04 19:11] VITALS: BP 149/87
--- NOTE | 2023-02-04 23:12 | NUR ---
2113 PT LYING IN BED, NO APPARENT SIGNS OF DISTRESS. DID NOT APPEAR TO HAVE LABORED BREATHING OR NAUSEA. NO GRIMACING, GAURDING, OR MOANING. CALL LIGHT IS IN REACH.
--- NOTE | 2023-02-04 23:13 | NUR ---
2235 ASSITED COMMISSARY MANAGER IN TURNING, CHANGING, AND REPOSITIONING PT. PT TOLERATED WELL. NO APPARENT SIGNS OF DISTRESS. CALL LIGHT IS IN REACH.
[2023-02-05] VITALS (19 sets, daily range): BP systolic 132–181; BP diastolic 71–118
--- NOTE | 2023-02-05 00:23 | NUR ---
ASSISTED E COMMERCE MARKETING ANALYST IN TURNING, CHANGING, AND REPOSITIONING PT. PT TOLERATED WELL. NO APPARENT SIGNS OF DISTRESS. CALL LIGHT IS IN REACH.
--- NOTE | 2023-02-05 03:50 | NUR ---
0200 ASSISTED ONLINE TRADER IN TURNING AND CHANGING AND REPOSITIONING PT. PT TOLERATED WELL. NO APPARENT SIGNS OF DISTRESS. CALL LIGHT IS IN REACH.
[2023-02-05 05:29] LABS: Albumin, Blood 2.8 g/dL (3.4-5.0); Anion Gap 3 mmol/L (6-16); Blood Urea Nitrogen 25 mg/dL (8-24); Bun/Creatinine Ratio 45.3 (12.0-20.0); CO2, Blood 29 mmol/L (21-32); Calcium, Blood 8.9 mg/dL (8.5-10.1); Chloride, Blood 106 mmol/L (98-108); Creatinine, Blood 0.55 mg/dL (0.40-1.00); Glomerular Filtration Rate 97 (60-); Glucose, Blood 112 mg/dL (70-99); Magnesium, Blood 1.8 mg/dL (1.6-2.4); Phosphorus, Blood 1.3 mg/dL (2.5-4.9); Potassium, Blood 3.4 mmol/L (3.5-5.5); Sodium, Blood 138 mmol/L (136-145)
--- NOTE | 2023-02-05 06:03 | NUR ---
PT HAS BEEN MOSTLY UNRESPONSIVE FOR THIS SHIFT EXCEPT WHEN TURNING AND CHANGING. SHE DID START TO MOAN AND PULL AT HER CPAP THIS MORNING, SHE WAS GIVEN TYLENOL AND ATARAX. TELE SR AT 93 BUT DID DROP DOWN FOR A FEW BEATS TO 43.
--- NOTE | 2023-02-05 06:03 | NUR ---
PT LYING IN BED, EYES CLOSED, APPEARS TO BE RESTING. BREATHING IS EVEN, UNLABORED. NO APPARENT SIGNS OF DISTRSS. CALL LIGHT IS IN REACH.
--- NOTE | 2023-02-05 06:06 | NUR ---
0530 PT BEGAN TO MOAN AND PULL AT HER CPAP HOSE. GAVE HER ATARAX AND TYLENOL, WILL EVAL FOR EFFECT. ASSISTED THE FLIGHT RESERVATIONS MANAGER IN TURNING, CHANGING, AND REPOSITIONING. PT TOLERATED WELL. NO OTHER APPARENT SIGNS OF DISTRESS. CALL LIGHT IS IN REACH.
--- NOTE | 2023-02-05 16:13 | NUR ---
History, Chart, Medications and Allergies reviewed before start of procedure. LS SOUND CLEAR BUT PT DOESN'T APPEAR TO INCREASED EFFORT WITH REQUEST FOR A DEEP BREATH. PT OFTEN MOANS. Pre-Op teaching done. Pt verbalizes understanding. Patient states colon prep results clear PER PT NURSES.
--- NOTE | 2023-02-05 16:48 | NUR ---
02/05/23 1648 Belinda Hallman History, Chart, Medications and Allergies reviewed before start of procedure. MONITOR INTACT WITH CONTINUOUS PULSE OXIMETRY, CONTINUOUS END TITAL CO2, AND INTERMITTENT BLOOD PRESSURE. 3-LEAD EKG REVIEWED WITH PHYSICIAN PRIOR TO START OF PROCEDURE. O2 VIA N/C INTACT THROUGHOUT SEDATION/PROCEDURE. SEDATION PROVIDED BY DR. REINA, SEE ANESTHESIA RECORD.
--- NOTE | 2023-02-05 18:46 | NUR ---
PT RETURNED FROM COLONOSCOPY 1744, EASILY AROUSES, NO VERBAL, OCC MOANING WAS HER NORM PRE-PROCEDURE. SATS 98-100% ROOM AIR. LEFT OXYGEN OFF. VSS. STARTED PPN AT RATE OF 96. WILL NEYDA POST PROCEDURE
--- NOTE | 2023-02-05 18:50 | NUR ---
SUMMARY- PT ALERT TO SELF- OPENS EYES TO VERBAL, OCC ANSWERS YES/NO OR SAYS A WORD. PT LLUVIA DIAZ. BOWEL PREP TODAY FOR COLONOSCOPY. RETURNED AT 1745. VSS. ROOM AIR. TELE. OCC RATE DIPS INTO 40'S AND QUICKLY RECOVERS BACK TO 80'S. CALLED DR PAREDES 4730 TO MAKE SURE SHE WAS AWARE, INSTRUCTED TO REMOVE PATCH IF RATE CONT TO DIP INTO 40'S. FAMILY IN/OUT ALL DAY, INVOLVED IN CARE. STARTED PPN THIS PM. WILL REPORT TO NOC RN.
[2023-02-06] VITALS (9 sets, daily range): BP systolic 108–189; BP diastolic 68–108
--- NOTE | 2023-02-06 04:32 | NUR ---
SHIFT SUMMARY PT LAYING IN BED DURING BEDSIDE REPORT, SON AT BEDSIDE- PT MOANING OCCASSIONALLY DURING THE REPORT- PT UNABLE TO ANSWER WHERE HER PAIN IS AT- NG IN PLACE, PPN INFUSING IN TO LEFT UPPER ARM POWERGLIDE 2009 GAVE OXYCODONE WITH SCHEDULED LYRICA IN NG TUBE FOR PT CONTINUES TO YELL OUT IN PAIN AND APPEARS TO BE PAINFUL- PT CONTINUED TO YELL OUT IN PAIN, PT'S SON REQUESTED ADDITIONAL OXYCODONE OR IV PAIN MED- PHONE CALL TO BARBARA BENDER - NEW ORDER FOR ONE DOSE OF FENTANYL, 2244 GAVE FENTANYL 25MG AND WAITED 15 MINUTES PER SON'S REQUEST TO MAKE SURE PT TOLERATED WELL AND GAVE ADDITIONAL 25MG ORDERED- - FAMILY ASSISTING WITH KEEPING PT FROM PULLING OUT NG TUBE- PT CONFUSED AND UNABLE TO FOLLOW DIRECTION, PT'S SON NOTIFIED THIS RN THAT THEY CAN REPOSITION PT- BRIEF CHECK Q2H- 0030 GAVE HYDROXIZINE AND TYLENOL VIA PEG TUBE FOR PT CONTINUES TO YELL OUT- ACCORDING TO HER CAREGIVER AT BASELINE PT WILL YELL OUT FROM ANXIETY- PT CALMED T/O NIGHT WITH A FEW OUTBURST- 219 CALL FROM TELE AND PT HR DOWN TO 39BPM A COUPLE TIMES- REMOVED CLONIDINE PATCH PER DR. HUBER
[2023-02-06 05:47] LABS: BASOPHILS ABSOLUTE AUTO 0.02 K/mm3 (0.00-0.23); BASOPHILS PERCENT AUTO 0 % (0-2); EOSINOPHILS PERCENT AUTO 1 % (0-6); Hematocrit 36.3 % (33.0-51.0); Hemoglobin 12.4 g/dL (11.5-16.0); IMMATURE GRAN ABSOLUTE AUTO 0.08 K/mm3 (0.00-0.10); IMMATURE GRAN PERCENT AUTO 1 % (0-1); LYMPHOCYTES ABSOLUTE AUTO 1.83 K/mm3 (0.84-5.20); LYMPHOCYTES PERCENT AUTO 14 % (21-46); MONOCYTES ABSOLUTE AUTO 1.22 K/mm3 (0.16-1.47); MONOCYTES PERCENT AUTO 10 % (4-13); Mean Corpuscular HGB Conc 34.2 g/dL (31.5-36.5); Mean Corpuscular Volume 88 fL (80-100); Mean Platelet Volume 9.8 fL (9.1-12.4); NEUTROPHILS ABSOLUTE AUTO 9.55 K/mm3 (1.96-9.15); NEUTROPHILS PERCENT AUTO 75 % (41-73); Platelet Count 410 K/mm3 (150-400); RDW Coefficient Variation 12.1 % (11.7-14.2); Red Blood Cell Count 4.13 M/mm3 (3.80-5.20)
--- NOTE | 2023-02-06 05:52 | NUR ---
2009 PT SELF REMOVED NG TUBE- CALL TO DR. BARRERA - ORDER TO HOLD OFF REPLACING NG TUBE AT THIS TIME BEING THAT THERE IS A NUTRITION CONSULT AND PLAN IS FOR DOBHOFF INSERTION- ORDER FOR FENTANYL IV PAIN MED D/T UNABLE TO GIVE OXYCODONE PER TUBE
[2023-02-06 06:05] LABS: Albumin, Blood 2.6 g/dL (3.4-5.0); Anion Gap 4 mmol/L (6-16); Blood Urea Nitrogen 18 mg/dL (8-24); Bun/Creatinine Ratio 38.8 (12.0-20.0); CO2, Blood 30 mmol/L (21-32); Calcium, Blood 8.2 mg/dL (8.5-10.1); Chloride, Blood 100 mmol/L (98-108); Creatinine, Blood 0.46 mg/dL (0.40-1.00); Glomerular Filtration Rate 102 (60-); Glucose, Blood 145 mg/dL (70-99); Magnesium, Blood 1.7 mg/dL (1.6-2.4); Phosphorus, Blood 2.3 mg/dL (2.5-4.9); Potassium, Blood 3.6 mmol/L (3.5-5.5); Sodium, Blood 134 mmol/L (136-145); Triglycerides 198 mg/dL (30-160)
--- NOTE | 2023-02-06 15:42 | NUR ---
STARTED TUBE FEEDING JEVILY 1.2 AT RATE OF 65ML/HR. PPN DC'D. MEDICATED WITH PERCOCET FOR S/S OF PAIN, EVIDENT OF MOANING AND FACIAL GRIMACE. MOD ANXIETY, CALLING OUT THE SAME THING OVER AND OVER "I CAN'T DO IT ANYMORE". BLOOD PRESSURE ELEVATED, MEDICAED 1500 WITH PRN CLONODINE. WILL REPORT TO DARVIN VERA TAKING OVER FOR THE REST OF THE SHIFT.
--- NOTE | 2023-02-06 15:46 | NUR ---
SUMMARY- PT A/O TO SELF AND FAMILY. PERIODS OF MOD-SEVERE ANXIETY EVIDENT BY CRYING OUT, "I CAN'T DO THIS". PT BECOMES AGITATED AND SWEATY. PT PULLED NG OUT IN THE NIGHT, REPLACED WITH DOBHOFF AND CONFIRMED PLACEMENT, DIETARY WROTE RECOMMENDATIONS FOR FEEDS. STARTED FEEDS AT 1530, JEVITY 1.2 RATE 65ML/HR. MEDICATED FOR PAIN WITH LYRICA 1130 ONCE NG PLACED. AND 1530 WITH PERCOCET FOR S/S OF PAIN. PT MOANING AND APPEARED UNCOMFORTABLE. PT HAS CAREGIVER AT BEDSIDE A MAJORITY OF THE TIME. PT TURNED ROUTINE AND CHANGED URINE INCONT. NO BM TODAY PT PREPPED YESTERDAY FOR COLONOSCOPY AND NOTHING IN BOWEL. TELE, RATE SR 70-90'UP 1230, RATE 60-70'S 1230 AND ON- [id number] DIPPED DOWN ONCE INTO THE LOW 40'S ONCE THIS SHIFT.(CLONODINE PATCH REMOVED CONSOLE ATTENDANT) GIVEN BP MEDS 1130 ONCE DOBHOFF ESTABLISHED, BP REMAINS HIGH, MEDICATED WITH CLONODINE 1530, WILL F/U. REPORTING OFF TO TO TAKE OVER 1600 FOR REST OF THE SHIFT
[2023-02-07] VITALS (7 sets, daily range): BP systolic 132–167; BP diastolic 60–124
[2023-02-07 05:25] LABS: BASOPHILS ABSOLUTE AUTO 0.02 K/mm3 (0.00-0.23); BASOPHILS PERCENT AUTO 0 % (0-2); EOSINOPHILS PERCENT AUTO 2 % (0-6); Hematocrit 37.2 % (33.0-51.0); Hemoglobin 12.6 g/dL (11.5-16.0); IMMATURE GRAN ABSOLUTE AUTO 0.14 K/mm3 (0.00-0.10); IMMATURE GRAN PERCENT AUTO 1 % (0-1); LYMPHOCYTES ABSOLUTE AUTO 1.73 K/mm3 (0.84-5.20); LYMPHOCYTES PERCENT AUTO 14 % (21-46); MONOCYTES ABSOLUTE AUTO 1.27 K/mm3 (0.16-1.47); MONOCYTES PERCENT AUTO 10 % (4-13); Mean Corpuscular HGB 30.3 pg (26.0-34.0); Mean Corpuscular HGB Conc 33.9 g/dL (31.5-36.5); Mean Corpuscular Volume 89 fL (80-100); Mean Platelet Volume 10.2 fL (9.1-12.4); NEUTROPHILS ABSOLUTE AUTO 9.07 K/mm3 (1.96-9.15); NEUTROPHILS PERCENT AUTO 73 % (41-73); Platelet Count 375 K/mm3 (150-400); RDW Coefficient Variation 12.4 % (11.7-14.2); RDW Standard Deviation 40.8 fL (35.1-46.3); Red Blood Cell Count 4.16 M/mm3 (3.80-5.20); White Blood Cell Count 12.43 K/mm3 (4.00-11.30)
[2023-02-07 05:41] LABS: Albumin, Blood 2.3 g/dL (3.4-5.0); Anion Gap 3 mmol/L (6-16); Blood Urea Nitrogen 20 mg/dL (8-24); Bun/Creatinine Ratio 32.4 (12.0-20.0); CO2, Blood 30 mmol/L (21-32); Chloride, Blood 98 mmol/L (98-108); Creatinine, Blood 0.62 mg/dL (0.40-1.00); Glomerular Filtration Rate 95 (60-); Glucose, Blood 134 mg/dL (70-99); Magnesium, Blood 1.9 mg/dL (1.6-2.4); Phosphorus, Blood 3.7 mg/dL (2.5-4.9); Potassium, Blood 3.7 mmol/L (3.5-5.5); Sodium, Blood 131 mmol/L (136-145)
--- NOTE | 2023-02-07 06:14 | NUR ---
PATIENT IS ORIENTED TO SELF AND FAMILY, NOT ABLE TO MAKE NEEDS KNOWN, OR FOLLOW DIRECTIONS, MOANS AND GRIMACES WITH MOVEMENT, CHRONIC PAIN AND HTN TREATED PER MAR WITH GOOD RESULTS, OTHERWISE VSS. NO U/O NOTED AT 0000, BLADDER DISTENDED, >999 ON BLADDER SCANNER WITH 1725 ONE TIME STRAIGHT CATH OUTPUT. THIS MORNING, NO U/O NOTED, BRIEF DRY, BLADDER SCAN SHOWS 165, WILL CONT TO MONITOR FOR DISTENTION. OF NOTE: PATIENTS FAMILY/SON WAS VERY UPSET WITH ANTIHYPERTENSIVE MEASURES AND STATED THEY WANTED TREATMENT AT SBP >145, THEY DO AT HOME. THIS RN ASSURED THEM THAT TREATMET WAS SAFE AND EFFECTIVE PER PRESENT ORDERS, HOWEVER, FAMILY WOULD LIKE MED PARAMETERS CHANGED. NO OTHER ISSUES TO REPORT.
--- NOTE | 2023-02-07 11:22 | NUR ---
CT HEAD PT TRANSPFERED TO TRANSPORT BO VIA SLIDER AND 3 ASSIST. PT GOING FOR HEAD CT WITH/WITHOUT. LEFT UE POWERGLIDE INTACT AND FLUSHES EASILY. CONTINUE POC.
[2023-02-07 12:30] LABS: Free Thyroxine 1.06 ng/dL (0.70-1.60)
[2023-02-07 12:32] LABS: Thyroid Stimulating Hormone 4.63 uIU/mL (0.360-4.800)
--- NOTE | 2023-02-07 17:22 | NUR ---
NOTE PT AWAKE. MAKING NEEDS KNOWN. SHE STATED SHE'S HUNGRY. SHE REPORTED THAT HE STOMACH HURTS. ZOFRAN 4MG IV X1 GIVEN. MEDICATED FOR PAIN X2 PER FAMILY DIRECTION. SHE MOANS AND CRIES OUT WITH ANY TOUCH OR MOVEMENT. CAREGIVER AT BEDSIDE VERY HELPFUL WITH HISTORY AND CARE NEEDS. CT HEAD DONE. BP ELEVATED AT TIMES. MEDCAITED PER ORDER. BLADDER SCAN DONE AT 1030. JOHN PLACED FOR BLADDER VOLUME OF 1400 ML. URINE IS ALMOST COLORLESS. CAREGIVER REPORTS THAT SHE GOES TO THE BATHROOM VERY OFTEN AND SITS FOR 15 MINUTES OR MORE AND TINKLES A BIT. REPOSTIONED AND SUPPORTED WITH PILLOWS TO PROTECT SKIN. CAREGIVER DID MINOR ROM WITH HER OF HANDS AND FEET. BOWEL CARE GIVEN SECURITY AUDITOR. NO BM YET. DOBHOFF FEEDING TUBE LEFT NARE. JEVITY INFUSING. LENGTH VERIFIED AND MARKED WITH SHARPIE. HOB 30 DEGREES OR HIGHER FOR ASPIRATION PRECAUTIONS. ORAL CARE PROVIDED PT WOULD ALLOW. FAMILY IS BRINGING IN HER ELECTRIC TOOTH BRUSH. MEDICATED FOR ANXIETY ONCE TODAY. TALKED WITH HER ABOUT LIMITING HER USE OF ANXIETY MEDICATION SO SHE CAN CONTINUE TO WAKE UP. SHE UNDERSTANDS. CONTINUE POC.
--- NOTE | 2023-02-08 05:42 | NUR ---
SHIFT SUMMARY 72 YR F ADMITTED ON 02/02/23 FOR ALTERED MENTAL STATUS. FULL CODE. ASSUMED CARE OF PT AT APPROX 0100. PT CAREGIVER AT BEDSIDE WHO EXPRESSED THAT SHE WAS UPSET THAT PT WAS NOT BEING GIVEN HER PAIN MEDS SHE HAS THEM SCHEDULED AT HOME. SHE SPOKE W/ CHARGE NURSE AND EXPRESSED THAT PT WAS IN PAIN AND NEEDED HER MEDS ADJUSTED. PT WAS CRYING AND STATING THAT SHE WAS IN PAIN. THIS NURSE CONTACTED HOSPITALIST AND REQUESTED THAT HER PAIN MEDS BE ADJUSTED TO THE SAME DOSAGE AND INTERVAL THAT SHE TAKES THEM AT HOME. ORDER WAS PLACED AND PAIN MEDS WERE GIVEN VIA DOBHOF TUBE. SHORTLY AFTER PT WAS OBSERVED SLEEPING AND DID NOT APPEAR TO BE IN PAIN OR DISTRESS,
[2023-02-08 06:54] LABS: BASOPHILS ABSOLUTE AUTO 0.05 K/mm3 (0.00-0.23); BASOPHILS PERCENT AUTO 0 % (0-2); EOSINOPHILS ABSOLUTE AUTO 0.38 K/mm3 (0.00-0.68); EOSINOPHILS PERCENT AUTO 3 % (0-6); IMMATURE GRAN ABSOLUTE AUTO 0.18 K/mm3 (0.00-0.10); IMMATURE GRAN PERCENT AUTO 1 % (0-1); LYMPHOCYTES ABSOLUTE AUTO 2.31 K/mm3 (0.84-5.20); LYMPHOCYTES PERCENT AUTO 18 % (21-46); MONOCYTES ABSOLUTE AUTO 1.16 K/mm3 (0.16-1.47); MONOCYTES PERCENT AUTO 9 % (4-13); Mean Corpuscular HGB 30.1 pg (26.0-34.0); Mean Corpuscular HGB Conc 33.3 g/dL (31.5-36.5); Mean Corpuscular Volume 90 fL (80-100); Mean Platelet Volume 9.6 fL (9.1-12.4); NEUTROPHILS ABSOLUTE AUTO 8.56 K/mm3 (1.96-9.15); NEUTROPHILS PERCENT AUTO 68 % (41-73); Platelet Count 441 K/mm3 (150-400); RDW Coefficient Variation 12.7 % (11.7-14.2); RDW Standard Deviation 42.1 fL (35.1-46.3); Red Blood Cell Count 4.32 M/mm3 (3.80-5.20); White Blood Cell Count 12.64 K/mm3 (4.00-11.30)
[2023-02-08 07:24] LABS: Bun/Creatinine Ratio 26.4 (12.0-20.0); Calcium, Blood 8.4 mg/dL (8.5-10.1); Creatinine, Blood 0.49 mg/dL (0.40-1.00); Magnesium, Blood 2.1 mg/dL (1.6-2.4); Phosphorus, Blood 2.9 mg/dL (2.5-4.9); Potassium, Blood 4.8 mmol/L (3.5-5.5)
[2023-02-08 11:50] VITALS: BP 186/81
[2023-02-08 12:54] LABS: U Amphetamine Screen Not Detected; U Barbituate Screen Not Detected; U Benzodiazapine Screen Not Detected; U Buprenorphine Screen Not Detected; U Cannabinoids Screen DETECTED; U Cocaine Screen Not Detected; U Methadone Screen Not Detected; U Methamphetamine Screen Not Detected; U Opiates Screen Not Detected; U Oxycodone Screen DETECTED; U Phencyclidine Screen Not Detected; U Propoxyphene Screen Not Detected
--- NOTE | 2023-02-08 18:19 | NUR ---
SHIFT SUMMARY: PT ALERT TO SELF AND FAMILY. DID NOT PULL NG TUBE DUE TO WAITING TO SEE IF PT CAN GET PROPER NUTRITION WITH PO FOOD DURING DAY. DIYA IN SPEECH THERAPY PUT PT ON PUREE DIET AND MEDS TO BE CRUSHED IN APPLESAUCE. PT TOLERATING MEDICATIONS. PT SONS REFUSED FOR PT TO EAT AT 90 DEGREES. STATED THAT THIS HOSPITAL HAS TO FOLLOW SWALLOWING PRECAUTIONS AND WOULD NOT BE ABLE TO FEED PT IF NOT SITTING UP IN BED. PER FAMILY, PT EATS BETTER SLIGHTLY LYING DOWN SHE HAS BEEN EATING THAT WAY "FOR YEARS." FAMILY ASKED IF THEY COULD FEED PT SINCE WE WOULD NOT. STATED TO FAMILY WHAT THE RISKS WERE FOR HAVING HEAD EVEN SLIGHTLY DOWN ESPECIALLY FOR A PT WHO HAS NOT EATEN FOR SEVERAL DAYS. PT ABLE TO EAT 50% OF DINNER AND DRINK WATER. NG FEEDS TO BE CONTINUED DURING NIGHTIME FOR 10 HOURS WITH WATER FLUSHES Q2 HR. PT REMAINS ON C-DIFF PRECAUTIONS. EXPLAINED TO FAMILY IMPORTANCE OF GOWNING AND WASHING HANDS PRIOR TO LEAVING ROOM. JOHN PATENT AND DRAINING YELLOW URINE. TOXICOLOGY SCREEN SENT OFF TODAY SHOWING POSITIVE FOR CANNABINOIDS AND OXY. PT C/O PAIN AND NAUSEA THROUGHOUT SHIFT. MEDICATED PER EMAR. PT HAS CONSISTENT HYPERTENSION. MEDICATED PER EMAR. FAMILY REMAINS AT BEDSIDE. CALL LIGHT IN REACH. BED IN LOWEST POSITION. WILL CONTINUE TO MONITOR.
[2023-02-08 19:36] VITALS: BP 167/88
[2023-02-09 02:10] VITALS: BP 159/89
[2023-02-09 07:19] VITALS: BP 137/83
[2023-02-09 13:53] VITALS: BP 175/99
[2023-02-09 15:21] VITALS: BP 143/102
--- NOTE | 2023-02-09 16:41 | NUR ---
Plan for today is to remove dobhoff & spence, STAMPING MACHINE OPERATOR at bedside & advanced diet to mechanical soft. CG at bedside, stated that pt usually eats at 30-45degrees, pt c/o pain when trying to sit up straight. STAMPING MACHINE OPERATOR edcuated pt & CG, verbalized understanding, but declined to follow STAMPING MACHINE OPERATOR directions. Patient worked with PT, pt unable to move to edge of bed, requires maxium help to dangle and stand up. Patient unable to place hands on FWW, during activity patient kept asking to go to bed, she said she was in pain and didn't want to get up. Helped patient back to bed. Patients arrived, verbalized frusteration with MD barkley the doctor made medication changes without consulting the pateints , he said all changes need to go through him and the PCP. This RN attempted to redirect, the said he was calling the PCP and left the unit. & daisy spoke with the patient and planned to DC home. DC postponed. Replaced spence catheter, patient retaining 400ml urine, unable to void this shfit. Patient stated she wants to go home, and she doesn't want to work with therapy. Will continue keep patient comfortable, and encourage PO intake. BP high this shift, hydralizine given for hypertension. Will continue plan of care, awaiting discharge planning.
[2023-02-09 20:14] VITALS: BP 162/118
--- NOTE | 2023-02-09 20:22 | NUR ---
pt came by office very distraught. theraputic visit he is truggling with the though of her passing. He did some life review and reminising. He wants her to 30 seconds before him. that is his lifes biggest wish. He was repetative and showing great fatigue and strain. Debora started talking about her passing and briefly reviewed a plan to make sure she does not suffer. First time he was open to that conversation. Will update her primary care physician of her struggles.
[2023-02-09 23:33] VITALS: BP 150/82
[2023-02-10 05:34] VITALS: BP 155/79
--- NOTE | 2023-02-10 05:39 | NUR ---
SHIFT SUMMERY. PT RESTING IN BED, PT EARLYER C/O PAIN TO HER STOMACH . dR JOYA A GI COCTAIL FOR PT TO HAVE PRN. PT ALSO C/O PAIN TO BUTTOCKS PT CHANGE AND OINTMENT APPLYED TO PTS RECTALAREA AND PT FLOATED IN BED WITH PILLOWS. PT POSITIONE CHANGED REPOSITIONED SEVERAL TIMED DURING NIGHT FAMILY WENT HOME AND A CARE GIVEN HER TO SIT WITH PT. PT SEEMED TO REST WELL DURING THE NIGHT.
[2023-02-10 06:48] LABS: BASOPHILS ABSOLUTE AUTO 0.04 K/mm3 (0.00-0.23); BASOPHILS PERCENT AUTO 0 % (0-2); EOSINOPHILS PERCENT AUTO 1 % (0-6); Hematocrit 38.7 % (33.0-51.0); Hemoglobin 13.3 g/dL (11.5-16.0); IMMATURE GRAN PERCENT AUTO 1 % (0-1); LYMPHOCYTES ABSOLUTE AUTO 1.65 K/mm3 (0.84-5.20); LYMPHOCYTES PERCENT AUTO 10 % (21-46); MONOCYTES ABSOLUTE AUTO 1.44 K/mm3 (0.16-1.47); MONOCYTES PERCENT AUTO 8 % (4-13); Mean Corpuscular HGB 30.4 pg (26.0-34.0); Mean Corpuscular HGB Conc 34.4 g/dL (31.5-36.5); Mean Corpuscular Volume 89 fL (80-100); Mean Platelet Volume 9.9 fL (9.1-12.4); NEUTROPHILS ABSOLUTE AUTO 13.72 K/mm3 (1.96-9.15); NEUTROPHILS PERCENT AUTO 81 % (41-73); Platelet Count 504 K/mm3 (150-400); RDW Coefficient Variation 12.4 % (11.7-14.2); RDW Standard Deviation 39.8 fL (35.1-46.3); Red Blood Cell Count 4.37 M/mm3 (3.80-5.20); White Blood Cell Count 17.05 K/mm3 (4.00-11.30)
[2023-02-10 07:22] LABS: Albumin/Globulin Ratio 0.9 (0.8-1.8); Bilirubin, Total 0.6 mg/dL (0.1-1.0); Bun/Creatinine Ratio 26.5 (12.0-20.0); Calcium, Blood 9.1 mg/dL (8.5-10.1); Creatinine, Blood 0.49 mg/dL (0.40-1.00); Globulin, Blood 3.3 g/dL (2.2-4.0); Potassium, Blood 4.7 mmol/L (3.5-5.5); Total Protein, Blood 6.3 g/dL (6.4-8.2)
[2023-02-10 07:23] VITALS: BP 153/68
--- NOTE | 2023-02-10 08:37 | NUR ---
CALLED PT SPOUSE. STATES SHE WAS TALKING YESTERDAY. IS MOANING THIS AM. NOT RESPONSIVE TODAY. DID GET HER TO OPEN EYES. FINALLY GAVE FIRST NAME. VSS , CALLED DR ZENDEJAS. HE CAME TO SEE PT. STATES NEEDS PARKINSONS MEDS. ORDERS FOR ABG AND CMP. STAT DONE
[2023-02-10 08:46] LABS: PCO2 Arterial 38.9 mmHg (35-45); pH Blood Arterial 7.47 (7.35-7.45)
[2023-02-10 08:47] LABS: PO2 Arterial 77.2 mmHg (80-100)
[2023-02-10 09:12] LABS: Calcium, Blood 9.1 mg/dL (8.5-10.1); Creatinine, Blood 0.48 mg/dL (0.40-1.00); Potassium, Blood 4.7 mmol/L (3.5-5.5)
[2023-02-10 11:30] VITALS: BP 119/86
--- NOTE | 2023-02-10 11:41 | NUR ---
PT CHANGE IN O2 SATS. DROPPING TO MID 80'2 ON R/A. PLACED O2 AT 5L. ABLE TO GET TO SATS UP TO 89-[address] ZENDEJAS. GAVE UPDATE. ORDERS FOR CHEST XRAY AND NEW ABG TO LOOK FOR CHANGES. CALLED RT, ON WAY. USING OXIMIZER NOW AT 92% AT 10 L
[2023-02-10 11:49] LABS: PCO2 Arterial 40.2 mmHg (35-45); PO2 Arterial 55.3 mmHg (80-100); pH Blood Arterial 7.46 (7.35-7.45)
[2023-02-10 15:13] VITALS: BP 137/90
--- NOTE | 2023-02-10 17:21 | NUR ---
CARE CONFERENCE: Pt's often stops at the palliative office on his way out. Dick was no exception. He states he is upset that a hospitalist changed one of pt's doses of medication without consulting her PCP. He was also upset the doctor was planning to d/c the pt as well, stating she has returned to her baseline. However, the appealed, and received an extra day for the pt. Unsure what the next steps will be. Plan to continue follow. Both Palliative Jailene and I spoke with him about the possibility of pt continuing to decline, as she is still not eating much, and remains immobile.
[2023-02-10 18:28] LABS: SARS-Cov-2 (COVID-19) PCR, MMC NEGATIVE (NEGATIVE)
--- NOTE | 2023-02-10 18:30 | NUR ---
PT MOSTLY ALSEEP T/O DAY. DID AWAKEN TODAY MORE AND ANSWERED MORE QUESTIONS FROM ABOUT [id number]. HAS BEEN ON CONTINUOUS BIOX. O2 SATS SUDDENLY DROPPED THIS AM TO MID 80'S. WAS ON R/A. LUNGS CONTINUE TO BE CLEAR. RESP EASY, UNLABORED. PLACED O2 AT 5L. MAINTAINED TO 89-90%. CALLED RT WE PLACED OXYMIZER AT 13L REST OF DAY. MAINTAINING 90-95%. HAS CHECKED D DIMER. HAS ORDERED COVID, RESULT JUST CAME BACK NEGATIVE FOR COVID. ALSO ORDERED PULMONOLOGY. HE WAS IN AND STATES PT HAS PNEUMONIA. POSSIBLE FOR ASPIRATION. PT RESTING , QUIET. O2 PRESENTLY AT 96%. DR PERSAUD JUST ADVISED WILL MAKE NPO. ORDERS FOR NG TUBE COMING. BED IN LOW POSITION, CALL LITE IN REACH. FAMILY AT BEDSIDE.
[2023-02-10 19:30] VITALS: BP 160/79
--- NOTE | 2023-02-11 05:35 | NUR ---
SHIFT SUMMERY. PT ON OXOMITER AT 13 L DURING DAY SHIFT. PT SATS HAVE BEEN IN MID 90S. PT HAD A DOBHOFF NG TUBE PLACED IN HER LEFT NAIRS, XRAY DONE AND WAS READ. AIR BOLUS DONE BEFORE GIVEN MEDS AND AIR BOULUS WAS HEARD IN CORRECT POSITION. PT REPOSITIONED SEVERAL TIMES DURRING THE NGHT AND CHANGED. PTS CG SITTING AT BEDSIDE DURRING THE NIGHT. CALL LIGHT IN REACH.
[2023-02-11 06:33] LABS: BASOPHILS ABSOLUTE AUTO 0.14 K/mm3 (0.00-0.23); BASOPHILS PERCENT AUTO 0 % (0-2); EOSINOPHILS ABSOLUTE AUTO 0.01 K/mm3 (0.00-0.68); EOSINOPHILS PERCENT AUTO 0 % (0-6); Hematocrit 36.5 % (33.0-51.0); Hemoglobin 12.6 g/dL (11.5-16.0); IMMATURE GRAN ABSOLUTE AUTO 1.08 K/mm3 (0.00-0.10); IMMATURE GRAN PERCENT AUTO 2 % (0-1); LYMPHOCYTES ABSOLUTE AUTO 1.45 K/mm3 (0.84-5.20); LYMPHOCYTES PERCENT AUTO 3 % (21-46); MONOCYTES ABSOLUTE AUTO 2.36 K/mm3 (0.16-1.47); MONOCYTES PERCENT AUTO 5 % (4-13); Mean Corpuscular HGB 30.3 pg (26.0-34.0); Mean Corpuscular HGB Conc 34.5 g/dL (31.5-36.5); Mean Corpuscular Volume 88 fL (80-100); Mean Platelet Volume 10.3 fL (9.1-12.4); NEUTROPHILS ABSOLUTE AUTO 43.32 K/mm3 (1.96-9.15); NEUTROPHILS PERCENT AUTO 90 % (41-73); Platelet Count 503 K/mm3 (150-400); RDW Coefficient Variation 12.5 % (11.7-14.2); RDW Standard Deviation 39.6 fL (35.1-46.3); Red Blood Cell Count 4.16 M/mm3 (3.80-5.20); White Blood Cell Count 48.36 K/mm3 (4.00-11.30)
[2023-02-11 07:43] VITALS: BP 129/98
--- NOTE | 2023-02-11 09:00 | NUR ---
PT MORE AWAKE TODAY. ABLE TO DISCUSS PAIN AND WHERE AND TO WHAT DEGREE. SPOKE WITH ME ABOUT WHEN IN. PT HAS DAUBHOFF TUBE. SECURE. MED FOR PAIN PER REQUEST. H/R REG, NO MURMUR NOTED. NO TELE. LUNGS CLEAR, RESP EASY, UNLABORED. ON 13L OXYMIZER. BT X4 LAST BM NOT KNOWN. HAS JOHN CATH, YELLOW FLUID IN BAG. PT CLEAN DRY AT THIS TIME. BED IN LOW POISITION, CALL LITE IN REACH, FAMILY AT BEDSIDE.
[2023-02-11 09:39] LABS: BASOPHILS ABSOLUTE AUTO 0.15 K/mm3 (0.00-0.23); BASOPHILS PERCENT AUTO 0 % (0-2); EOSINOPHILS PERCENT AUTO 0 % (0-6); Hematocrit 36.3 % (33.0-51.0); Hemoglobin 12.5 g/dL (11.5-16.0); IMMATURE GRAN ABSOLUTE AUTO 0.95 K/mm3 (0.00-0.10); IMMATURE GRAN PERCENT AUTO 2 % (0-1); LYMPHOCYTES ABSOLUTE AUTO 1.19 K/mm3 (0.84-5.20); LYMPHOCYTES PERCENT AUTO 3 % (21-46); MONOCYTES ABSOLUTE AUTO 2.51 K/mm3 (0.16-1.47); MONOCYTES PERCENT AUTO 5 % (4-13); Mean Corpuscular HGB 30.3 pg (26.0-34.0); Mean Corpuscular HGB Conc 34.4 g/dL (31.5-36.5); Mean Corpuscular Volume 88 fL (80-100); Mean Platelet Volume 10.3 fL (9.1-12.4); NEUTROPHILS ABSOLUTE AUTO 42.25 K/mm3 (1.96-9.15); NEUTROPHILS PERCENT AUTO 90 % (41-73); Platelet Count 490 K/mm3 (150-400); RDW Coefficient Variation 12.6 % (11.7-14.2); RDW Standard Deviation 40.3 fL (35.1-46.3); Red Blood Cell Count 4.12 M/mm3 (3.80-5.20); White Blood Cell Count 47.05 K/mm3 (4.00-11.30)
[2023-02-11 10:03] LABS: BAND PERCENT MAN 3 % (0-8); BASOPHILS PERCENT MAN 0 % (0-2); EOSINOPHILS PERCENT MAN 0 % (0-6); LYMPHOCYTES ABSOLUTE MAN 0.47 K/mm3 (0.84-5.20); LYMPHOCYTES PERCENT MAN 1 % (21-46); MONOCYTES ABSOLUTE MAN 2.35 K/mm3 (0.16-1.47); MONOCYTES PERCENT MAN 5 % (4-13); NEUTROPHILS ABSOLUTE MAN 44.22 K/mm3 (1.96-9.15); SEG NEUTROPHILS PERCENT MAN 91 % (41-73); TOTAL CELLS COUNTED 100
[2023-02-11 10:05] LABS: Base Excess Venous 2.9 mmol/L; Bicarbonate Venous 26.9 mmol/L (24.0-30.0); PCO2 Venous 39.1 mmHg (38-42); pH Blood Venous 7.45 (7.34-7.37)
[2023-02-11 10:32] LABS: Bun/Creatinine Ratio 36.4 (12.0-20.0); Calcium, Blood 8.9 mg/dL (8.5-10.1); Creatinine, Blood 0.61 mg/dL (0.40-1.00); Potassium, Blood 4.6 mmol/L (3.5-5.5)
--- NOTE | 2023-02-11 11:30 | NUR ---
PT SATS AT 100%, TURNED O2 DOWN TO 10L OXYMIZER
--- NOTE | 2023-02-11 12:10 | NUR ---
PT SATS AT 100%, TURNED DOWN TO 8L OXYMIZER
[2023-02-11 14:38] VITALS: BP 145/69
--- NOTE | 2023-02-11 15:07 | NUR ---
1300 TUKRNED O2 DOWN TO 6L OXYMIZER. PT SATS 97% AVG
--- NOTE | 2023-02-11 15:07 | NUR ---
STARTED TUBE FEEDING @1455 OF JEVITY 1.2 @ 25ML/HR TO INCREASE BY 10-20MLS Q8HR UNTIL GOAL OF 65ML/HR IS REACHED WITH 250ML FLUSH OF WATER Q8HRS PER ORDERS. PT. IS TOLERATING TUBE FEEDING.
--- NOTE | 2023-02-11 15:08 | NUR ---
1000 DR CATALAN START TUBE FEEDING WITH ORIGINAL JEVITY WHICH WE STILL HAVE IN ROOM. ALSO ADD BOLUS 250 H2O Q8 HRS. DONE
[2023-02-11 15:20] VITALS: BP 158/77
--- NOTE | 2023-02-11 17:09 | NUR ---
Pt in office reminising. He has been at hospital all day. He is starting to make statements about moving out of his house if she is not there. Theraputic conversation with his planning her future care.
--- NOTE | 2023-02-11 18:38 | NUR ---
SHIFT SUMMARY PT. ALERT THIS AM TO SELF AND FAMILY MEMBERS. TALKATIVE THIS MORNING. PT. WAS ON 13LPM THIS AM, ABLE TO TAPER OXYGEN DOWN TO 5LPM MAINTAING O2 STATS >95%. TUBE FEEDING STARTED THIS AM AND TOELRATED WELL PER ORDER; SEE EMAR. FAMILY AT BEDSIDE TODAY. PT. PAIN MANAGED PER EMAR. PT. HAS NOT HAD A BOWEL MOVEMENT TODAY.
--- NOTE | 2023-02-11 19:21 | NUR ---
AGREE WITH RN NOTES.
[2023-02-11 20:02] VITALS: BP 123/77
[2023-02-12 04:07] VITALS: BP 123/66
--- NOTE | 2023-02-12 06:40 | NUR ---
SHIFT SUMMARY PT LAYING IN BED DURING FIRST ROUNDING, BEDSIDE REPORT DONE OUTSIDE OF ROOM D/T 12 FAMILY MEMEBERS IN VISITING PATIENT AT THAT TIME- PT SITTING UP IN BED TALKING WITH FAMILY, PT WAS ALERT AND ORIENT TO SELF AND PLACE, PT AWARE THAT SHE HAD BEEN IN HOSPITAL BUT REPORTED LOST TRACK OF TIME WHILE HERE, DUBHOFF IN PLACE AND FEEDING INFUSING AT 25ML/HR 1999 INCREASED JEVITY FEED TO 35ML/HR- PT TOLERATING WELL- PT AND FAMILY REQUESTED FEED TO INCREASE D/T PT FEELING HUNGRY- PT REQUESTED TO EAT- NOTIFIED BOTH FAMILY AND PATIENT THAT PT WILL HAVE A SWALLOW EVALUATION BEFORE EATING- BOTH STATED UNDERSTANDING PT C/O LOWER BACK PAIN D/T LAYING IN BED, EGG CRATE APPLIED TO BED - PT REPORTED DECREASED BACK PAIN- 0000- MEDICATED PT FOR LOWER BACK PAIN - INCREASED JEVITY FEED TO 45ML/HR - PT SLEPT T/O NIGHT, PT HAD MEDIUM BM - PT SLEPT AND REPOSITIONED Q2H- 0530 INCREASED FEEDING TO 55ML/HR, CAREGIVER AT BEDSIDE- BED LOW POSITION, CALL LIGHT WITHIN REACH
[2023-02-12 07:48] VITALS: BP 164/74
[2023-02-12 11:47] VITALS: BP 139/70
[2023-02-12 15:18] VITALS: BP 144/82
--- NOTE | 2023-02-12 17:45 | NUR ---
PATIENT A/OX3, MULTIPLE FAMILY MEMBERS AT BEDSIDE THROUGHOUT THE DAY. PATIENT WORKED WITH PT AND WAS ABLE TO SIT AT THE SIDE OF THE BED. MAINTAINING SATS ON RA WHILE AWAKE, 5LO2 WHILE ASLEEP. UNABLE TO TOLERATE CPAP DUE TO DOBHOFF IN PLACE. CONTINUUS FEEDS STOPPED AND PATIENT PLACED ON MECHANICAL SOFT DIET. CONTINUOUS FEEDS WILL RUN AT NIGHT. PATIENT REPORTS BACK AND GENERALIZED PAIN, TYLENOL AND OXYCODONE GIVEN TO TREAT ALONG WITH SCHEDULED LYRICA. SKIN INTACT. JOHN TO GRAVITY. VSS THIS SHIFT. POWERGLIDE TO GUY WNL AND SL BETWEEN ABX. NO NEW CONCERNS THIS SHIFT.
[2023-02-12 20:15] VITALS: BP 162/90
--- NOTE | 2023-02-12 22:50 | NUR ---
START OF SHIFT THIS STUDENT NURSE ASSUMED CARE OF THE PT AT 1900 UNDER THE OBSERVATION OF NURSE JOE SANDS. PT COMPLAINS OF PAIN, ADMINISTERED THE PRESCRIBED TYLENOL. LYRICA GIVEN BY NURSE JOE SANDS FOR NERVE PAIN. PT STILL COMPLAINS OF PAIN, WILL CONTINUE TO MONITOR, WILL INFORM PHYSICIAN OF CHANGE. PT VERBALIZES INCREASED WEAKNESS IN EXTREMITIES, SINEMET GIVEN TO REDUCE SYMPTOMS. BP INCREASED, WILL CONTINUE TO MONITOR TO ADMINISTER PRESCRIBED HYDRALAZINE IF SBP REMAINS >160. REMAINING VS WNL. PT A&O X3. PT CAREGIVER REMAINS AT BEDSIDE. PT LEFT IN A POSITION OF SAFETY WITH NONSKID SOCKS, GUARD RAILS RAISED, BED IN LOW POSITION, CALL LIGHT WITHIN REACH, FAMILY AT BEDSIDE. WILL CONTINUE TO MONITOR.
[2023-02-13] VITALS (7 sets, daily range): BP systolic 136–185; BP diastolic 71–101
--- NOTE | 2023-02-13 03:43 | NUR ---
SHIFT SUMMARY THIS STUDENT NURSE ADDRESSED THE PT'S C-DIFF THROUGH THE ADMINISTRATION OF THE PRESCRIBED ANTIBIOTICS. APPLIED ORANGE CAP CREAM TO SATNAM AREA AND RECTAL AREA DUE TO REDNESS TO PREVENT FURTHER SKIN BREAKDOWN. PT COMPLAINS OF PAIN, PRESCRIBED MEDICATIONS AND NONPHARMACOLOGICAL INTERVENTIONS ARE UNSUCCESSFUL IN REDUCING THE PATIENT'S PAIN, SLEEP IS DIFFICULT TO ACHIEVE. WILL CONTINUE TO MONITOR AND OFFER COMFORT INTERVENTIONS. AT HOME CAREGIVER AT BEDSIDE. A&O X3, PATIENT KEPT IN A POSITION OF SAFETY, WILL CONTINUE TO MONITOR.
--- NOTE | 2023-02-13 04:41 | NUR ---
I HAVE OBSERVED THE CARE STUDENT NURSE PROVIDED AND THE DOCUMENTATION OF SUCH. I AGREE WITH SAID INFO.
[2023-02-13 06:09] LABS: BASOPHILS ABSOLUTE AUTO 0.04 K/mm3 (0.00-0.23); BASOPHILS PERCENT AUTO 0 % (0-2); EOSINOPHILS PERCENT AUTO 1 % (0-6); Hematocrit 33.2 % (33.0-51.0); Hemoglobin 11.1 g/dL (11.5-16.0); IMMATURE GRAN ABSOLUTE AUTO 0.11 K/mm3 (0.00-0.10); IMMATURE GRAN PERCENT AUTO 1 % (0-1); LYMPHOCYTES ABSOLUTE AUTO 1.44 K/mm3 (0.84-5.20); LYMPHOCYTES PERCENT AUTO 10 % (21-46); MONOCYTES ABSOLUTE AUTO 1.28 K/mm3 (0.16-1.47); MONOCYTES PERCENT AUTO 9 % (4-13); Mean Corpuscular HGB 30.7 pg (26.0-34.0); Mean Corpuscular HGB Conc 33.4 g/dL (31.5-36.5); Mean Corpuscular Volume 92 fL (80-100); Mean Platelet Volume 10.3 fL (9.1-12.4); NEUTROPHILS ABSOLUTE AUTO 11.33 K/mm3 (1.96-9.15); NEUTROPHILS PERCENT AUTO 79 % (41-73); Platelet Count 489 K/mm3 (150-400); RDW Standard Deviation 43.7 fL (35.1-46.3); Red Blood Cell Count 3.61 M/mm3 (3.80-5.20)
[2023-02-13 06:37] LABS: Bun/Creatinine Ratio 34.1 (12.0-20.0); Calcium, Blood 8.6 mg/dL (8.5-10.1); Creatinine, Blood 0.53 mg/dL (0.40-1.00); Potassium, Blood 4.3 mmol/L (3.5-5.5)
[2023-02-13 07:12] LABS: CARBOXY-THC 200 (.)
--- NOTE | 2023-02-13 18:33 | NUR ---
SHIFT SUMMARY: PT A&O X3. PT VERY UPSET THIS SHIFT. PAIN MEDICATIONS CHANGED TO BID PRN TRAMADOL. TALKED TO DR. ESCOBAR WHO CHANGED TO TRAMADOL Q6 PRN. PT CONTINUES TO BE UPSET I TOLD HER THEY SWITCHED DUE TO LETHARGY. PT MECHANICAL SOFT WITH MEDS CRUSHED ON /PUDDING. SPEECH THERAPY STATING PT DID GOOD WITH SWALLOWING THIS SHIFT. PT TO POSSIBLY D/C IN NEXT COUPLE DAYS WITH HOME HEALTH. FLAGYL AND ROCEPHIN GIVEN PER EMAR. CALL LIGHT IN REACH. BED IN LOWEST POSITION. WILL CONTINUE TO MONITOR.
--- NOTE | 2023-02-13 23:24 | NUR ---
START OF SHIFT THIS STUDENT NURSE ASSUMED CARE OF PT AT 1700 UNDER THE OBSERVATION OF NURSE JOE SANDS. PT WAS IN PAIN AND REFUSED PRESCRIBED TRAMADOL AND TYLENOL, REQUESTING AT HOME PAIN MEDICATION. FAMILY AT BEDSIDE. REFUSED HEAT OR COLD INTERVENTIONS. NURSE JOE SANDS CONTACTED PHYSICIAN FOR PERCOCET. PAIN LEVELS MANAGED VERBALIZED BY PT AFTER ADMINISTRATION. CRACKLES AUSCALTED IN BOTH LUNGS. PT CHANGED AT 2230 AND WAS INCONTINENT OF BOWEL. SATNAM CARE PERFORMED AT THIS TIME. PT LEFT IN A POSITION OF COMFORT AND SAFETY WITH BED RAILS RAISED, CALL LIGHT WITHIN REACH, BED IN LOW POSITION, SENIOR RESIDENT CARE DIRECTOR AT BEDSIDE. PT A&O TO PERSON, SUROUNDING, AND SITUATION. BP ELEVATED, WILL MONITOR FOR S/S. REMAINING VITAL SIGNS WNL.
[2023-02-14] VITALS (7 sets, daily range): BP systolic 153–197; BP diastolic 72–117
[2023-02-14 08:25] LABS: BASOPHILS ABSOLUTE AUTO 0.05 K/mm3 (0.00-0.23); BASOPHILS PERCENT AUTO 0 % (0-2); EOSINOPHILS ABSOLUTE AUTO 0.21 K/mm3 (0.00-0.68); EOSINOPHILS PERCENT AUTO 2 % (0-6); IMMATURE GRAN ABSOLUTE AUTO 0.07 K/mm3 (0.00-0.10); IMMATURE GRAN PERCENT AUTO 1 % (0-1); LYMPHOCYTES ABSOLUTE AUTO 1.47 K/mm3 (0.84-5.20); LYMPHOCYTES PERCENT AUTO 13 % (21-46); MONOCYTES ABSOLUTE AUTO 0.93 K/mm3 (0.16-1.47); MONOCYTES PERCENT AUTO 8 % (4-13); Mean Corpuscular HGB 30.4 pg (26.0-34.0); Mean Corpuscular HGB Conc 33.3 g/dL (31.5-36.5); Mean Corpuscular Volume 91 fL (80-100); Mean Platelet Volume 10.2 fL (9.1-12.4); NEUTROPHILS ABSOLUTE AUTO 8.47 K/mm3 (1.96-9.15); NEUTROPHILS PERCENT AUTO 76 % (41-73); Platelet Count 695 K/mm3 (150-400); RDW Coefficient Variation 12.8 % (11.7-14.2); RDW Standard Deviation 41.9 fL (35.1-46.3); Red Blood Cell Count 3.95 M/mm3 (3.80-5.20)
[2023-02-14 08:36] LABS: Albumin, Blood 2.6 g/dL (3.4-5.0); Anion Gap 7 mmol/L (6-16); Blood Urea Nitrogen 15 mg/dL (8-24); Bun/Creatinine Ratio 33.5 (12.0-20.0); CO2, Blood 28 mmol/L (21-32); Chloride, Blood 97 mmol/L (98-108); Creatinine, Blood 0.45 mg/dL (0.40-1.00); Glomerular Filtration Rate 102 (60-); Glucose, Blood 119 mg/dL (70-99); Phosphorus, Blood 2.9 mg/dL (2.5-4.9); Potassium, Blood 4.5 mmol/L (3.5-5.5); Sodium, Blood 132 mmol/L (136-145)
[2023-02-14] MEDS ORDERED: CAPT50 PO (13:45)
--- NOTE | 2023-02-14 19:59 | NUR ---
SUMMARY- PT ALERT TO SELF AND FAMILY. BEDREST, SAT AT EDGE OF BED WITH PT TODAY. PT HAD PARKINSONS WITH DECREASED VERBAL COMMUNICATION. DEALING WITH CHRONIC PAIN. MEDICATED WITH LYRICA THIS AM FOR C/O ABD AND BACK PAIN AND R SHOULDER. GAVE HYDROXAZINE FOR ANXIETY X2. PERC 5/325MG WITH MIN EFFECT X2. PT AND FAMILY UPSET THAT PERCOCET 10/325 DC'D. PT TOLERATING MECH SOFT DIET, 30-50% FOR BREAKFAST AND LUNCH, NOW EATING ON DINNER. HOPING TO DC DOBHOFF TOMORROW IF TOLERATING PO INTAKE. PT'S LUNGS CLEAR, ON ROOM AIR. CONT PULSE OX 94%. CAREGIVER IN ROOM 23/04 OR FAMILY, INVOLVED IN PT CARE. ABD XRAY COMPLETED TODAY PT COMPLAINING OF ABD PAIN. NO OBSTRUCTION NOTED. REPORTED TO NOC RN.
[2023-02-15 00:53] VITALS: BP 142/82
[2023-02-15 04:02] VITALS: BP 146/80
[2023-02-15 05:00] LABS: BASOPHILS ABSOLUTE AUTO 0.06 K/mm3 (0.00-0.23); BASOPHILS PERCENT AUTO 1 % (0-2); EOSINOPHILS ABSOLUTE AUTO 0.16 K/mm3 (0.00-0.68); EOSINOPHILS PERCENT AUTO 2 % (0-6); Hematocrit 35.3 % (33.0-51.0); Hemoglobin 11.6 g/dL (11.5-16.0); IMMATURE GRAN ABSOLUTE AUTO 0.04 K/mm3 (0.00-0.10); IMMATURE GRAN PERCENT AUTO 0 % (0-1); LYMPHOCYTES ABSOLUTE AUTO 1.96 K/mm3 (0.84-5.20); LYMPHOCYTES PERCENT AUTO 21 % (21-46); MONOCYTES ABSOLUTE AUTO 0.95 K/mm3 (0.16-1.47); MONOCYTES PERCENT AUTO 10 % (4-13); Mean Corpuscular HGB 30.2 pg (26.0-34.0); Mean Corpuscular HGB Conc 32.9 g/dL (31.5-36.5); Mean Corpuscular Volume 92 fL (80-100); Mean Platelet Volume 9.8 fL (9.1-12.4); NEUTROPHILS ABSOLUTE AUTO 6.01 K/mm3 (1.96-9.15); NEUTROPHILS PERCENT AUTO 66 % (41-73); Platelet Count 582 K/mm3 (150-400); RDW Coefficient Variation 12.5 % (11.7-14.2); RDW Standard Deviation 42.2 fL (35.1-46.3); Red Blood Cell Count 3.84 M/mm3 (3.80-5.20); White Blood Cell Count 9.18 K/mm3 (4.00-11.30)
[2023-02-15 05:21] LABS: Albumin, Blood 2.4 g/dL (3.4-5.0); Anion Gap 4 mmol/L (6-16); Blood Urea Nitrogen 13 mg/dL (8-24); Bun/Creatinine Ratio 28.6 (12.0-20.0); CO2, Blood 29 mmol/L (21-32); Calcium, Blood 8.9 mg/dL (8.5-10.1); Chloride, Blood 100 mmol/L (98-108); Creatinine, Blood 0.45 mg/dL (0.40-1.00); Glomerular Filtration Rate 102 (60-); Glucose, Blood 149 mg/dL (70-99); Phosphorus, Blood 3.2 mg/dL (2.5-4.9); Potassium, Blood 4.1 mmol/L (3.5-5.5); Sodium, Blood 133 mmol/L (136-145)
--- NOTE | 2023-02-15 05:44 | NUR ---
SHIFT SUMMARY PT LAYING IN BED DURING BEDSIDE REPORT- PT CRYING OUT AND CONFUSED OF WHY SHE IS SO PAINFUL- FAMILY EXPRESSED CONCERN OF BOTH CLONIDINE BEING D/C'D AND PT ON OXYCODONE 5MG- SON REPORTS PT USUALLY TAKES OXYCODONE 20MG FOR PAIN CONTROL- CALL TO BARBARA BENDER RE: BOTH - ONE TIME ORDER FOR CLONIDINE AND RESUMED HOME MEDS OF OXYCODONE 10MG-20MG Q6H- PT HYPERTENSIVE - GAVE CATAPRESS WITH HS MEDS - BP CONTINUED TO BE ELEVATED, PT BP DECREASED WITH CLONIDINE-PT HAS FEEDING TUBE INFUSING AT 55ML/HR- CAREGIVER AT BEDSIDE
[2023-02-15 07:38] VITALS: BP 133/79
[2023-02-15 11:46] VITALS: BP 119/87
--- NOTE | 2023-02-15 15:18 | NUR ---
Neck pillow taken in for pt. Family at bedside. Pt reports pain, was recently medicated with percocet about 30 min ago. PC to continue to follow for symptom management.
[2023-02-15 16:42] VITALS: BP 135/68
--- NOTE | 2023-02-15 16:48 | NUR ---
SHIFT SUMMARY: Pt alert to self and family this shift. VSS, pain managed with IV and PO meds. Resp even nonlabored. Lung sounds clear with diminished bases. Dophoff removed as ordered, pt eating small bites of mechanical soft meals. Meds crushed with pudding preference. HOB up 90 degrees with meals and time after. Aspiration precautions in place. Bed locked in lowest position. Power glide IV with NS TKO. Patrice dc'd as ordered. Brief in place. Pt currently resting with eyes closed. No facial grimicing, appears to be resting comfortably. Pt cg at bedside. Will continue to follow.
[2023-02-15 20:03] VITALS: BP 143/71
--- NOTE | 2023-02-16 01:29 | NUR ---
CALLED REGARDING PT NOT VOIDING SINCE CATHERTER REMOVAL AT 1550 ON 02/15/23, BLADDER SCANNED PT. BLADDER SCANNED REVEALED 462MLS OF URINE IN BLADDER. PT UNAGGREABLE TO CATHERTERIZATION. NOTIFIED OF THIS, PER DR. FOUNTAIN CONTINUE TO EDUCATION THAT IF SHE CONTINUES TO REFUSE CATHERTERIZATION EVEN THOUGH SHE IS NOT VOIDING HER KIDNEYS COULD BE INJURED.
--- NOTE | 2023-02-16 02:01 | NUR ---
PT CALLED TO ASK HER WHAT SHE SHOULD DO WHEN WE DISCUSSED POSSIBLE NEED FOR CATHERIZATION GIVEN SHE HAS NOT VOIDED SINCE JOHN CAME OUT AT 1550 ON 02/15/23. TOLD PT WE SHOULD CONTINUE TO WAIT AND THEREFORE PT REPEATEDLY REITERATES SHE IS UNWILLING TO BE CATHETERIZED. PT HAS BEEN EDUCATED ON POSSIBLE KIDNEY INJURY IF SHE CONTINUE TO NOT VOID AND REFUSES CATHERIZATION.
--- NOTE | 2023-02-16 04:20 | NUR ---
SHIFT SUMMARY; PT UNABLE TO VOID SINCE TAKING OUT HER JOHN AT 1550 ON 02/15/23. PT IS UNAGREEABLE TO CATHERIZATION AT THIS TIME DESPITE BEING EDUCATED ON POSSIBLE KIDNEY INJURY R/T URINE RETENTION. DR. FOUNTAIN IS AWARE OF PTS URINE RETENTION AND REFUSAL FOR CATHERIZATION. PT HAS BEEN AWAKE MOST OF THE NIGHT. PRN PAIN MEDICATION GIVEN, ALTHOUGH PT STATES THAT SHE IS STILL IN PAIN. PT IS VERY ANXIOUS THIS EVENING, PRN HOME ANXIETY MEDICATION GIVEN WITH GOOD EFEFCT THIS AM. THE PT HAS BEEN LYING IN BED FOR THE ENTIRETY OF THE SHIFT. THE PT HAS 3L NC ON WITH O2 SATS >92%. THE PT DENIES ANY SOB, CHEST PAIN/PRESSURE OR NUMBNESS/TINGLING. TREMOR PRESENT-R/T PARKINSONS. CURRENTLY THE PT IS LYING IN BED WITH THE BED IN THE LOWEST POSITION AND THE CALL LIGHT AT BEDSIDE. HOME CAREGIVER IS PRESENT AT PTS BEDSIDE.
[2023-02-16 05:48] VITALS: BP 150/76
[2023-02-16 08:20] VITALS: BP 161/88
[2023-02-16 09:00] LABS: BASOPHILS ABSOLUTE AUTO 0.06 K/mm3 (0.00-0.23); BASOPHILS PERCENT AUTO 1 % (0-2); EOSINOPHILS ABSOLUTE AUTO 0.11 K/mm3 (0.00-0.68); EOSINOPHILS PERCENT AUTO 1 % (0-6); Hematocrit 35.9 % (33.0-51.0); Hemoglobin 11.9 g/dL (11.5-16.0); IMMATURE GRAN ABSOLUTE AUTO 0.07 K/mm3 (0.00-0.10); IMMATURE GRAN PERCENT AUTO 1 % (0-1); LYMPHOCYTES PERCENT AUTO 16 % (21-46); MONOCYTES ABSOLUTE AUTO 0.74 K/mm3 (0.16-1.47); MONOCYTES PERCENT AUTO 7 % (4-13); Mean Corpuscular HGB 30.7 pg (26.0-34.0); Mean Corpuscular HGB Conc 33.1 g/dL (31.5-36.5); Mean Corpuscular Volume 93 fL (80-100); Mean Platelet Volume 9.4 fL (9.1-12.4); NEUTROPHILS ABSOLUTE AUTO 7.88 K/mm3 (1.96-9.15); NEUTROPHILS PERCENT AUTO 75 % (41-73); Platelet Count 655 K/mm3 (150-400); RDW Coefficient Variation 12.7 % (11.7-14.2); RDW Standard Deviation 42.8 fL (35.1-46.3); Red Blood Cell Count 3.88 M/mm3 (3.80-5.20); White Blood Cell Count 10.56 K/mm3 (4.00-11.30)
[2023-02-16 09:26] LABS: Albumin, Blood 2.7 g/dL (3.4-5.0); Anion Gap 6 mmol/L (6-16); Blood Urea Nitrogen 12 mg/dL (8-24); Bun/Creatinine Ratio 27.5 (12.0-20.0); CO2, Blood 30 mmol/L (21-32); Calcium, Blood 8.9 mg/dL (8.5-10.1); Chloride, Blood 97 mmol/L (98-108); Creatinine, Blood 0.44 mg/dL (0.40-1.00); Glomerular Filtration Rate 103 (60-); Glucose, Blood 135 mg/dL (70-99); Phosphorus, Blood 3.2 mg/dL (2.5-4.9); Potassium, Blood 4.4 mmol/L (3.5-5.5); Sodium, Blood 133 mmol/L (136-145)
[2023-02-16 11:55] VITALS: BP 133/79
[2023-02-16 16:19] VITALS: BP 173/87
--- NOTE | 2023-02-16 17:27 | NUR ---
SHIFT SUMMARY: Pt A&O x3, fatigued. Lung sounds clear, diminished. O2 sat 95-97% RA. Resp even nonlabored. Up to BSC with max ast without void. Bladder scan with 479 ml, straight cath with 470 ml yellow output this afternoon. Per Dr. Jackson, may need indwelling reinserted and dc home with spence. Repositioned for comfort and medicated prn pain. Eating small bites of meals and drinks without difficulty. Asp precautions in place. Will continue to follow this shift.
--- NOTE | 2023-02-16 18:50 | NUR ---
ORDER ERROR LATHA WRAP BREAST DC'D
[2023-02-16 19:46] VITALS: BP 161/94
[2023-02-17 05:18] VITALS: BP 184/81
[2023-02-17 06:10] LABS: Source, Urine Foley catheter
[2023-02-17 06:13] LABS: Bilirubin, Urine Neg (Neg); Blood, Urine Neg (Neg); Glucose Qualitative, Urine Neg (Neg); Ketones, Urine Neg (Neg); Leukocyte Esterase, Urine Neg (Neg); Nitrite, Urine Neg (Neg); Protein, Urine Neg (Neg); Urobilinogen, Urine NORM (Normal); pH, Urine 6.5 (5.0-8.0)
[2023-02-17 06:19] LABS: Appearance, Urine Clear (Clear); Color, Urine Yellow (P-Yellow)
--- NOTE | 2023-02-17 06:47 | NUR ---
SHIFT SUMMARY: PATIENT A&O X 2-3, ABLE TO VERYBALIZE NEEDS. FAMILY AND CAREGIVERS PRESENT AT BEDSIDE. PATIENT DENIES CHEST PAIN OR DISCOMFORT. NO COMPLAINTS OF SOB. EATING SOFT MEALS, PILLS WHOLE WITH WATER. PAIN MANAGED WITH PERCOCET THIS SHIFT 2 TABS AND TYLENOL. SLEPT WELL THROUGH THE NIGHT. BLADDER SCAN OVER 800 IN BLADDER, PLACED JOHN NO VOID. CALL LIGHT AND CAREGIVER AT BED SIDE.
[2023-02-17 08:07] VITALS: BP 187/85
[2023-02-17] MEDS ORDERED: DOCU100 PO (11:38)
[2023-02-17] MEDS ORDERED: CAPT50 PO (11:38)
[2023-02-17] MEDS ORDERED: Vancocin HCl125 MG (11:41)
[2023-02-17] MEDS ORDERED: VISBIOME 112.51 EACH PO (11:42)
[2023-02-17 12:08] VITALS: BP 146/84
--- NOTE | 2023-02-17 14:40 | NUR ---
NOTES/DISCHARGE SUMMARY: PATIENT A&OX3. SLOW TO RESPOND. PLEASANT AND COOPERATIVE c CARE. PATIENT DENIES CP/PRESSURE, N/V, SOB. REPORTS PAIN 6-8/10 TO ABDOMEN. PAIN MEDICATED PER EMAR ORDER c GOOD RELIEF. JOHN PLACED LAST NIGHT FOR URINARY RETENTION. JOHN PATENT, DRAINING YELLOW URINE TO GRAVITY. PATIENT RECEIVED BEDBATH AND LINEN CHANGED. VITAL SIGNS REVIEWED. PATIENT RECEIVED SCHEDULED MEDS PER EMAR. POWERGLIDE TO TO [facility]. PATIENT DISCHARGE HOME. DISCHARGE INSTRUCTION PACKET GIVEN TO SPOUSE. EDUCATE SPOUSE AND PATIENT REGARDING ADMITTING DX, S/S, TX, JOHN CATH CARE AND NEW PRESCRIBED MEDS. PATIENT AND SPOUSE STATED UNDERSTANDING AND NO FURTHER QUESTION. RX WAS FAXED TO PATIENT PREFERRED PHARMACY ([facility]). ALL PATIENT PERSONAL BELONGINGS WERE SENT HOME c THE PATIENT. PATIENT LEFT THE ROOM AT AROUND 1415. PATIENT WAS TRANSPORTED VIA WHEELCHAIR BY CONCRETE SMOOTHER STAFF, JENNIFER MURDOCK TO PATIENT SPOUSE PRIVATE VEHICLE.
== END 2023-02-17 14:16 | disposition home health service (06) | DRG 871 ==
LOC: ER 19:16 → MEDS 19:17 → ENPENDDIS 02-09 15:28 → MEDS 02-17 14:16
PROVIDERS: Emergency Medicine; Family Medicine; Internal Medicine; Internal Medicine Critical Care Medicine; Internal Medicine Gastroenterology; Student in an Organized Health Care Education/Training Program; ADMIT Internal Medicine
PROC: 3E03329 Introduction of Other Anti-infective into Peripheral Vein, Percutaneous Approach (ICD-10-PCS; 2023-02-02)
PROC: 0T9B70Z Drainage of Bladder with Drainage Device, Via Natural or Artificial Opening (ICD-10-PCS; 2023-02-02)
PROC: 5A09457 Assistance with Respiratory Ventilation, 24-96 Consecutive Hours, Continuous Positive Airway Pressure (ICD-10-PCS; 2023-02-03)
PROC: 0DH67UZ Insertion of Feeding Device into Stomach, Via Natural or Artificial Opening (ICD-10-PCS; 2023-02-04)
PROC: 0DBL8ZX Excision of Transverse Colon, Via Natural or Artificial Opening Endoscopic, Diagnostic (ICD-10-PCS; 2023-02-05)
PROC: 0DBN8ZX Excision of Sigmoid Colon, Via Natural or Artificial Opening Endoscopic, Diagnostic (ICD-10-PCS; 2023-02-05)
PROC: 0DBP8ZX Excision of Rectum, Via Natural or Artificial Opening Endoscopic, Diagnostic (ICD-10-PCS; 2023-02-05)
PROC: 0DBM8ZX Excision of Descending Colon, Via Natural or Artificial Opening Endoscopic, Diagnostic (ICD-10-PCS; 2023-02-05)
PROC: 0DBH8ZX Excision of Cecum, Via Natural or Artificial Opening Endoscopic, Diagnostic (ICD-10-PCS; 2023-02-05)
PROC: 3E0G76Z Introduction of Nutritional Substance into Upper GI, Via Natural or Artificial Opening (ICD-10-PCS; 2023-02-05)
PROC: 0DBM8ZZ Excision of Descending Colon, Via Natural or Artificial Opening Endoscopic (ICD-10-PCS; principal; 2023-02-05 16:30)
PROC: 0DBL8ZZ Excision of Transverse Colon, Via Natural or Artificial Opening Endoscopic (ICD-10-PCS; 2023-02-05 16:30)
PROC: 0DBK8ZX Excision of Ascending Colon, Via Natural or Artificial Opening Endoscopic, Diagnostic (ICD-10-PCS; 2023-02-05 16:30)
PROC: 4A033R1 Measurement of Arterial Saturation, Peripheral, Percutaneous Approach (ICD-10-PCS; 2023-02-10)
DX: A41.9 Sepsis, unspecified organism (principal); G92.8 Other toxic encephalopathy; J96.01 Acute respiratory failure with hypoxia; J69.0 Pneumonitis due to inhalation of food and vomit; J18.9 Pneumonia, unspecified organism; A04.72 Enterocolitis due to Clostridium difficile, not specified as recurrent; E44.0 Moderate protein-calorie malnutrition; E87.1 Hypo-osmolality and hyponatremia; N39.0 Urinary tract infection, site not specified; F11.20 Opioid dependence, uncomplicated; Z51.5 Encounter for palliative care; G20 Parkinson's disease; R33.9 Retention of urine, unspecified; T40.725A Adverse effect of synthetic cannabinoids, initial encounter; F41.1 Generalized anxiety disorder; G89.4 Chronic pain syndrome; I10 Essential (primary) hypertension; E83.39 Other disorders of phosphorus metabolism; D75.838 Other thrombocytosis; E88.09 Other disorders of plasma-protein metabolism, not elsewhere classified; E86.0 Dehydration; R13.10 Dysphagia, unspecified; K21.9 Gastro-esophageal reflux disease without esophagitis; M54.9 Dorsalgia, unspecified; K76.0 Fatty (change of) liver, not elsewhere classified; I16.0 Hypertensive urgency; E66.01 Morbid (severe) obesity due to excess calories; M85.80 Other specified disorders of bone density and structure, unspecified site; M35.3 Polymyalgia rheumatica; G25.0 Essential tremor; Z20.822 Contact with and (suspected) exposure to COVID-19; K63.5 Polyp of colon; K64.4 Residual hemorrhoidal skin tags; Z86.010 Personal history of colon polyps; Z83.71 Family history of colonic polyps; Z88.8 Allergy status to other drugs, medicaments and biological substances; Z87.19 Personal history of other diseases of the digestive system; Z68.22 Body mass index [BMI] 22.0-22.9, adult; Z88.5 Allergy status to narcotic agent; Z79.899 Other long term (current) drug therapy; Z79.01 Long term (current) use of anticoagulants; Z90.12 Acquired absence of left breast and nipple; Z98.51 Tubal ligation status; Z87.440 Personal history of urinary (tract) infections; Z98.890 Other specified postprocedural states; Z98.1 Arthrodesis status
CPT/HCPCS: 36415; 36600; 51701; 70470; 71045; 71275; 74018; 74177; 80048; 80053; 80069; 81001; 81003; 82140; 82550; 82803; 82947; 83036; 83605; 83690; 83735; 83880; 84100; 84145; 84146; 84439; 84443; 84478; 85025; 85379; 85651; 86140; 87040; 87086; 87324; 87507; 88305; 92526; 92610; 93005; 93010; 94660; 94762; 96361; 96365-59; 96372; 96375; 96375-59; 96376; 97110; 97162; 97530; 99285-25; A9270; C1751; G0378; G0480; J0360; J0696; J1650; J2060; J2370; J2405; J2543; J2704; J2765; J3010; J7030; J7050; J7060; J7120; Q9967; U0004

== ENCOUNTER → 2023-04-23 | Outpatient (CLI) | payer MEDICARE, OTHER ==
[~2023-04-23] MED LIST changes: +CATAPRES0.1 MG PO; +HYDHCL10EL PO; +Percocet 10-321 EACH PO; +VISBIOME 112.51 EACH PO; +Vancocin HCl125 MG
[2023-04-24 10:44] LABS: C DIFFICILE DNA NEGATIVE (Negative)
== END ==
LOC: LAB 13:00 → LAB SHORT 13:00
PROVIDERS: Chiropractor Sports Physician
DX: A04.72 Enterocolitis due to Clostridium difficile, not specified as recurrent (principal)
CPT/HCPCS: 87493

== ENCOUNTER → 2023-05-02 | Outpatient (CLI) | payer MEDICARE, OTHER ==
[2023-05-02 15:25] LABS: C DIFFICILE DNA NEGATIVE (Negative)
== END | disposition home or self-care (01) ==
LOC: LAB SHORT 08:50 → LAB 08:50
PROVIDERS: Nurse Practitioner
DX: R10.84 Generalized abdominal pain (principal); Z86.19 Personal history of other infectious and parasitic diseases
CPT/HCPCS: 87493

== ENCOUNTER → 2023-05-06 | Outpatient (CLI) | payer MEDICARE, OTHER ==
[~2023-05-06] MED LIST changes: +CONSTULOSE10 GM/155 PO; +Fleet Enema132 ML PR; +HEMORRHOIDAL RE30 GM PR; +PRAHYD1AE TOP; +SENNA LAXATIVE8.6 MG PO
== END | disposition home or self-care (01) ==
LOC: LAB 13:04 → LAB SHORT 13:04
DX: R82.90 Unspecified abnormal findings in urine (principal)
CPT/HCPCS: 87077; 87086; 87186

== ENCOUNTER 2023-05-09 09:33 | Emergency (ER) | payer MEDICARE, OTHER | END 2023-05-09 13:53 | disposition home or self-care (01) | LOC: ER 09:33 | DX: K59.03 Drug induced constipation (principal); T40.2X5A Adverse effect of other opioids, initial encounter; K60.2 Anal fissure, unspecified; K64.4 Residual hemorrhoidal skin tags; R11.2 Nausea with vomiting, unspecified; Z88.8 Allergy status to other drugs, medicaments and biological substances; Z88.5 Allergy status to narcotic agent; Z79.899 Other long term (current) drug therapy; G20 Parkinson's disease; I10 Essential (primary) hypertension ==

== ENCOUNTER 2023-05-16 14:30 | Emergency (ER) | payer MEDICARE, OTHER ==
[~2023-05-16] VITALS: Ht 172.7 cm; Wt 61.2 kg
[2023-05-16] MEDS ORDERED: CATAPRES0.1 MG PO (15:23)
[2023-05-16 16:30] VITALS: BP 149/86
== END 2023-05-16 17:00 | disposition home or self-care (01) ==
LOC: ER 14:30
DX: K59.09 Other constipation (principal); Z88.8 Allergy status to other drugs, medicaments and biological substances; Z88.5 Allergy status to narcotic agent; Z79.899 Other long term (current) drug therapy; G20 Parkinson's disease; I10 Essential (primary) hypertension
CPT/HCPCS: A9270; J1885; J2405

== ENCOUNTER → 2024-01-04 | Outpatient (CLI) | payer MEDICARE, OTHER ==
[2024-01-04 09:41] LABS: Source, Urine Clean Catch
[2024-01-04 10:03] LABS: Appearance, Urine Clear (Clear); Bilirubin, Urine Neg (Neg); Blood, Urine Neg (Neg); Color, Urine Yellow (P-Yellow); Glucose Qualitative, Urine Neg (Normal); Ketones, Urine 1+ (Neg); Leukocyte Esterase, Urine Neg (Neg); Nitrite, Urine Neg (Neg); Protein, Urine Neg (Neg); Specific Gravity, Urine 1.015 (1.003-1.022); Urobilinogen, Urine NORM (Normal)
== END ==
LOC: LAB SHORT 06:00 → LAB 06:00
PROVIDERS: Internal Medicine
DX: N39.0 Urinary tract infection, site not specified (principal)
CPT/HCPCS: 81003